=== PATIENT | female | born 1955 | race Caucasian/White ===

== ENCOUNTER 2016-08-09 12:02 | Inpatient (IN) | payer BC, OTHER ==
[2016-08-09] MEDS ORDERED: IPRATROPIUM-ALBUTEROL 3 ML NEB INHALATION STA (12:21)
--- NOTE | 2016-08-09 12:24 | ED ---
Chest Pain HPI - General Chief Complaint: Chest Pain Stated Complaint: Chest Pain/SOB Time Seen by Provider: 08/09/16 12:11 Source: patient, family, RN notes reviewed Mode of arrival: wheelchair Limitations: no limitations - History of Present Illness Initial Comments: This is a 61-year-old female with a necessity benign past medical history other than hypertension who did quit smoking about 30 years ago who states she's had for the past 2 weeks evidence of a racing heart and shortness of breath especially when climbing stairs curiously also is had a cold and cough symptoms she has had in the morning cough with greenish brown phlegm. She's had no overt fevers chills or sweats. Also of note however she states she just drove back from [place] about 2 weeks ago when the symptoms did start. She denies any overt chest pain at this time she has intermittent edema in her left ankle but this in the [place] for many years she denies any other complaints he denies any leg or calf pain abdominal pain or other symptoms. She does complain however of being short of breath even at rest at this time. MD Complaint: other - Related Data Home Medications Medication Instructions Recorded Confirmed Atorvastatin [Lipitor] 20 mg PO HS 08/09/16 08/09/16 Levothyroxine Sodium [Synthroid] 150 mcg PO DAILY 08/09/16 08/09/16 Metoprolol Tartrate [Lopressor] 50 mg PO DAILY 08/09/16 08/09/16 Allergies Allergy/AdvReac Type Severity Reaction Status Date / Time Penicillins Allergy Swelling Verified 08/09/16 12:53 Review of Systems ROS Statement: Those systems with pertinent positive or pertinent negative responses have been documented in the HPI. ROS Other: All systems not noted in ROS Statement are negative. EKG Findings - EKG Results: EKG: interpreted by PABLITO, sinus rhythm (Normal sinus rhythm rate of 76. Interval 134 QRS duration 78 QT/QTC of/459 appear to be normal EKG no acute ST- T wave elevations or depressions.) Past Medical History Past Medical History: Chest Pain / Angina, Hyperlipidemia, Thyroid Disorder History of Any Multi-Drug Resistant Organisms: None Reported Past Surgical History: Section, Cholecystectomy, Orthopedic Surgery Past Psychological History: No Psychological Hx Reported Smoking Status: Former smoker Past Alcohol Use History: None Reported Past Drug Use History: None Reported General Exam - General Exam Comments Initial Comments: This is a well-developed well-nourished awake alert oriented 3 female Limitations: no limitations General appearance: alert, in no apparent distress Head exam: Present: atraumatic, normocephalic, normal inspection Eye exam: Present: normal appearance, PERRL, EOMI. Absent: scleral icterus, conjunctival injection, periorbital swelling ENT exam: Present: normal exam, mucous membranes moist Neck exam: Present: normal inspection. Absent: tenderness, meningismus, lymphadenopathy Respiratory exam: Present: decreased breath sounds. Absent: respiratory distress, wheezes, rales, rhonchi, stridor Cardiovascular Exam: Present: regular rate, normal rhythm, normal heart sounds. Absent: systolic murmur, diastolic murmur, rubs, gallop, clicks GI/Abdominal exam: Present: soft, normal bowel sounds. Absent: distended, tenderness, guarding, rebound, rigid Extremities exam: Present: normal inspection, full ROM, normal capillary refill. Absent: tenderness, pedal edema, joint swelling, calf tenderness Back exam: Present: normal inspection Neurological exam: Present: alert, oriented X3, CN II-XII intact Psychiatric exam: Present: normal affect, normal mood Skin exam: Present: warm, dry, intact, normal color. Absent: rash Course Vital Signs 08/09/16 08/09/16 08/09/16 12:05 12:18 13:18 Temperature 98.8 F 97.4 F L Pulse Rate 78 70 81 Respiratory 20 24 Rate Blood Pressure 154/80 126/73 O2 Sat by Pulse 94 L 97 Oximetry 08/09/16 08/09/16 08/09/16 13:25 13:27 13:32 Temperature 98.1 F Pulse Rate 82 80 Respiratory 20 Rate Blood Pressure 131/77 O2 Sat by Pulse 97 Oximetry 08/09/16 08/09/16 08/09/16 14:05 14:07 14:47 Temperature 98.4 F Pulse Rate 102 H 86 84 Respiratory 24 24 Rate Blood Pressure 136/79 128/70 O2 Sat by Pulse 89 L 94 L 97 Oximetry 08/09/16 15:08 Temperature Pulse Rate 86 Respiratory Rate Blood Pressure 147/74 O2 Sat by Pulse 98 Oximetry - Reevaluation(s) Reevaluation #1: 08/09/16 15:38 Patient has no change in her status on reexamination no chest pain minimal dyspnea on resting she did go to the bathroom and did develop dyspnea however on exertion Chest Pain MDM - MDM I did review the x-rays which are nonspecific except for nodule left upper lobe I did do a CAT scan of the patient there is evidence of bilateral pulmonary emboli I did discuss this with the radiologist. I also discussed this with the patient and her . Is also elevation of the troponin. I did discuss the case with Dr. Bellamy. Patient will be admitted with consultation by cardiology and pulmonary medicine. Patient was started on high-dose heparin. Critical Care Time Critical Care Time: Yes Critical Care Time: 39 minutes of critical care time including initial history physical lab and x- ray orders repeat examination with CAT scan. Repeat examination of the patient is had with the patient and her regarding findings discussed with the admitting physician. Admission orders and documentation of the above. Disposition Clinical Impression: Pulmonary embolism, Non-ST elevation myocardial infarction (NSTEMI), Dyspnea on exertion Disposition: ADMITTED IP TO THIS HOSP Condition: Stable
--- NOTE | 2016-08-09 13:20 | XR ---
EXAMINATION TYPE: XR chest 2V DATE OF EXAM: 08/09/2016 1:12 PM HISTORY: Difficulty breathing. REFERENCE: NONE. FINDINGS: The heart is enlarged. There is a 2 cm nodular opacity projecting over the left upper chest . The lungs are otherwise clear. Pleural spaces are clear. IMPRESSION: 1. CARDIOMEGALY. 2. 2 CM PULMONARY NODULE IN THE LEFT UPPER LOBE. A CT SCAN OF THE CHEST WOULD BE SUGGESTED.
[2016-08-09 13:30] LABS: Basophils # (A) 0.1 k/uL (0-0.2); Basophils % (A) 1 %; CH 30.9; CHCM 32.8; Eosinophils # (A) 0.1 k/uL (0-0.7); Eosinophils % (A) 2 %; HCT 44.5 % (34.0-46.0); HDW 2.45; HGB 14.4 gm/dL (11.4-16.0); Luc # (Auto) 0.19; Luc % (Auto) 3; Lymphocytes # (A) 1.3 k/uL (1.0-4.8); Lymphocytes % (A) 19 %; MCH 30.5 pg (25.0-35.0); MCHC 32.3 g/dL (31.0-37.0); MCV 94.3 fL (80.0-100.0); Mean Platelet Volume 6.8; Monocytes # (A) 0.4 k/uL (0-1.0); Monocytes % (A) 6 %; Neutrophils # (A) 4.9 k/uL (1.3-7.7); Neutrophils % (A) 70 %; RBC 4.72 m/uL (3.80-5.40); RDW 12.9 % (11.5-15.5); WBC (Perox) 7.91
[2016-08-09 13:39] LABS: ALT 65 U/L (9-52); AST 48 U/L (14-36); Alkaline Phosphatase 69 U/L (38-126); Anion Gap 7 mmol/L; Blood Urea Nitrogen 16 mg/dL (7-17); Calcium 9.8 mg/dL (8.4-10.2); Carbon Dioxide 28 mmol/L (22-30); Chloride 104 mmol/L (98-107); Glucose 135 mg/dL (74-99); Magnesium 2.1 mg/dL (1.6-2.3); Non-African American GFR(MDRD) >60 (>60 ml/min/1.73 sqM); Potassium 5.2 mmol/L (3.5-5.1); Sodium 139 mmol/L (137-145); Total Bilirubin 0.7 mg/dL (0.2-1.3); Total Protein 7.1 g/dL (6.3-8.2)
[2016-08-09 13:49] LABS: Partial Thromboplastin Time 22.5 sec (22.0-30.0); Prothrombin Time 10.6 sec (9.0-12.0)
[2016-08-09 14:26] LABS: Creatine Kinase MB 1.9 ng/mL (0.0-2.4)
[2016-08-09 14:30] LABS: Troponin I 0.376 ng/mL (0.000-0.034)
[2016-08-09] MEDS ORDERED: RX INFO: IV CONTRAST WAS GIVEN 1 EACH MISC MISCELLANE PRN (14:45)
[2016-08-09] MEDS ORDERED: HEPARIN SODIUM,PORCINE 5,000 UNIT/ML 1 ML VIAL IV STA (15:31)
--- NOTE | 2016-08-09 15:38 | CT ---
EXAMINATION TYPE: CT angio chest DATE OF EXAM: 08/09/2016 3:08 PM COMPARISON: NONE HISTORY: Left sided chest pain and difficulty breathing. CT DLP: 621.00 mGycm Automated exposure control for dose reduction was used. CONTRAST: CTA scan of the thorax is performed with IV Contrast, patient injected with 100 mL of Omnipaque 300, pulmonary embolism protocol. . FINDINGS: The lungs are clear. There is no significant axillary, internal mammary, mediastinal or hilar adenopathy. There is extensive, bilateral pulmonary emboli. There is no significant evidence of right heart strai n. The heart is enlarged. There is no pleural or pericardial fluid. There is been a previous cholecystectomy. Visualized portions of the upper abdomen are otherwise norm al. There is hypertrophic spondylosis within the spine. IMPRESSION: THIS EXAMINATION IS POSITIVE FOR EXTENSIVE MAIN PULMONARY ARTERY AND LOWER LOBE PULMONARY ARTERY EMBO LI BILATERALLY.
[2016-08-09] MEDS ORDERED: NALOXONE 0.4 MG/ML 1 ML VIAL IV PRN (15:41)
[2016-08-09] MEDS: HEPARIN SODIUM,PORCINE/D5W PMX 25,000 UNIT in DEXTROSE/WATER 1 500ML.BAG IV SCH (16:03)
[2016-08-09] MEDS: SODIUM CHLORIDE 0.9% 1,000 ML IV SCH (16:03)
[2016-08-09] MEDS: IPRATROPIUM-ALBUTEROL 3 ML NEB INHALATION SCH ×4 (16:14→19:59)
[2016-08-09] MEDS ORDERED: IPRATROPIUM-ALBUTEROL 3 ML NEB INHALATION PRN (19:45)
[2016-08-09] MEDS: ATORVASTATIN 20 MG TAB PO SCH (21:21)
[2016-08-10] MEDS: HEPARIN SODIUM,PORCINE/D5W PMX 25,000 UNIT in DEXTROSE/WATER 1 500ML.BAG IV SCH ×2 (04:51→15:56)
[2016-08-10] MEDS: LEVOTHYROXINE 75 MCG TAB PO SCH (05:43)
[2016-08-10] MEDS: IPRATROPIUM-ALBUTEROL 3 ML NEB INHALATION SCH ×4 (07:30→19:16)
[2016-08-10] MEDS: METOPROLOL TARTRATE 50 MG TAB PO SCH (08:40)
--- NOTE | 2016-08-10 10:09 | P.HPIM ---
History of Present Illness H&P Date: 08/10/16 Chief Complaint: Chest pain and shortness of breath Patient is a 61 year old female who presented to ER with a chief complaint of chest pain and shortness of breath she states that she traveled from [place] to [place] in a car which was at 10-12 hour right 2 weeks ago she started having episodes of chest pain and feeling her heart racing she started having worsening shortness of breath eventually she decided to come to emergency room she was evaluated in the emergency room her d-dimer was significantly elevated at 5.22, computed tomography scan angiogram of the chest was positive for extensive bilateral pulmonary embolism she was started on IV heparin and was admitted to the telemetry floor. Pulmonary consultation was requested. Patient also had slightly elevated troponin level. Past medical and surgical history is significant for #1 history of hypertension #2 history of osteoarthritis, status post bilateral knee surgeries #3 history of cholecystectomy #4 history of hernia repair #5 history of hyperlipidemia maintained on Lipitor Social history Patient lives at home she is able to ambulate and take care of her daily needs she use to smoke she quit 30 years ago she drinks alcohol rarely she denies any drug use Past Medical History Past Medical History: Chest Pain / Angina, Hyperlipidemia, Osteoarthritis (OA), Pneumonia, Thyroid Disorder Additional Past Medical History / Comment(s): PAPITATIONS, History of Any Multi-Drug Resistant Organisms: None Reported Past Surgical History: Section, Cholecystectomy, Hernia Repair, Orthopedic Surgery, Tonsillectomy Additional Past Surgical History / Comment(s): ONE DENTAL IMPLANT, COLONOSCOPY, HEMORRHOIDECTOMY,PILONIDAL CYST REMOVED AGE 17, CERVICAL BX-PRE CANCEROUS CELLS- HAD PROCEDURE , HAD BROKEN IUD REMOVED AND PT STATED THEY WENT IN LIKE HAVING A TO REMOVED BROKEN PEICES,DOMINGUEZ KNEE REPLACEMENTS Past Anesthesia/Blood Transfusion Reactions: No Reported Reaction Past Psychological History: No Psychological Hx Reported Smoking Status: Former smoker Past Alcohol Use History: Rare Additional Past Alcohol Use History / Comment(s): STARTED SMOKING AT AGE 17, SMOKED 1PPD ,QUIT 1985 Past Drug Use History: None Reported - Past Family History Father Family Medical History: Congestive Heart Failure (CHF) Additional Family Medical History / Comment(s): AGE 78 Mother Additional Family Medical History / Comment(s): PARKINSONS- AGE 74. AN AUNT HAD BRAIN AND ABD ANUERYSM. Medications and Allergies Home Medications Medication Instructions Recorded Confirmed Type Atorvastatin [Lipitor] 20 mg PO HS 08/09/16 08/09/16 History Levothyroxine Sodium [Synthroid] 150 mcg PO DAILY 08/09/16 08/09/16 History Metoprolol Tartrate [Lopressor] 50 mg PO DAILY 08/09/16 08/09/16 History Allergies Allergy/AdvReac Type Severity Reaction Status Date / Time Penicillins Allergy Swelling Verified 08/09/16 12:53 Physical Exam Vitals: Vital Signs Temp Pulse Pulse Pulse Resp BP BP 08/10/16 08:00 98.3 F 86 18 112/82 08/10/16 07:37 85 08/10/16 07:30 85 08/10/16 04:00 81 18 118/71 08/10/16 00:00 86 18 122/70 08/09/16 20:00 98.5 F 87 92 18 123/68 08/09/16 19:20 88 08/09/16 19:10 88 08/09/16 17:10 98.2 F 87 16 140/87 08/09/16 16:10 98.1 F 88 20 134/66 Pulse Ox 08/10/16 08:00 95 08/10/16 07:37 08/10/16 07:30 08/10/16 04:00 96 08/10/16 00:00 95 08/09/16 20:00 97 08/09/16 19:20 08/09/16 19:10 08/09/16 17:10 94 L 08/09/16 16:10 97 Intake and Output 08/09/16 08/10/16 08/10/16 22:59 06:59 14:59 Intake Total 180 544.232 100 Balance 180 544.232 100 Intake: IV 60 Heparin Sodium,Porcine/ 60 D5w Pmx 25,000 unit In Dextrose/Water 1 500ml. bag @ 18 UNITS/KG/HR 42. 45 mls/hr IV .[id number] [facility] Rx#:[id number] Intake, IV Titration 544.232 40 Amount Heparin Sodium,Porcine/ 544.232 D5w Pmx 25,000 unit In Dextrose/Water 1 500ml. bag @ 18 UNITS/KG/HR 42. 45 mls/hr IV .[id number] [facility] Rx#:[id number] Sodium Chloride 0.9% 1, 40 000 ml @ 20 mls/hr IV . Q24H [facility] Rx#:[id number] Oral 180 0 Other: # Voids 0 0 0 Weight 117.934 kg Patient Weight 08/11/16 06:59 Weight 117.934 kg In general patient is alert and oriented 3 in no apparent distress HEENT head normocephalic and atraumatic Neck is supple no JVD no goiter no lymphadenopathy Chest exam reveals a scattered crackles bilaterally no wheezing Cardiac exam reveals regular heart sounds S1 and S2 no gallops no murmurs Abdomen is soft nontender no organomegaly was normal bowel sounds Extremity exam reveals minimal edema especially in the left ankle area no cyanosis or clubbing Results CBC & Chem 7: 08/09/16 13:14 08/09/16 13:14 Labs: Abnormal Lab Results - Last 24 Hours (Table) 08/09/16 08/09/16 08/10/16 Range/Units 19:15 22:12 00:50 APTT 94.8 H (22.0-30.0) sec Troponin I 0.544 H* 0.423 H* (0.000-0.034) ng/mL 08/10/16 Range/Units 05:30 APTT 62.8 H (22.0-30.0) sec Troponin I (0.000-0.034) ng/mL Assessment and Plan Plan: #1 bilateral pulmonary embolism, patient started on IV heparin, pulmonary consultation was requested #2 slight elevation in troponin level, cardiology consultation was requested likely related to pulmonary embolism #3 underlying history of hypertension #4 underlying history of hyperlipidemia #5 underlying history of hypothyroidism #6 remote history of smoking quit 30 years ago #7 underlying history of osteoarthritis At this time continue was current medications, will assess if patient insurance pays for any of the new anticoagulation medications, if not patient will be started on Coumadin.
--- NOTE | 2016-08-10 10:22 | CONS ---
DATE OF CONSULTATION: CHIEF COMPLAINT: Shortness of breath, palpitations and syncope. Natty is a 61-year-old lady with history of hypothyroidism, dyslipidemia, and palpitations who presented to the hospital having had an episode of sustained palpitations, chest tightness and syncope while she was having a bowel movement. The patient has been having on and off episodes of palpitations, but the most recent episode came on at rest with severe in intensity and without any clear-cut relieving or exacerbating factors. She came to hospital. Her EKG did not reveal ischemic changes. She has had troponin that was elevated. A D-dimer that was 5.22, went on to have a CT scan of the lungs that showed extensive pulmonary embolism involving the main pulmonary artery and lower lobe pulmonary arteries. She is treated with intravenous heparin and at the time of my evaluation this morning appears comfortable at rest. Does not seem to be in respiratory distress. She is not tachycardic and remains hemodynamically stable. Chest x-ray showed mild cardiomegaly. Past medical history is significant for hypothyroidism, dyslipidemia, hypertension and palpitations. Medications at home include Lopressor 50 mg daily, Synthroid and Lipitor. Allergic to PENICILLIN. Family history is negative for premature coronary artery disease. SOCIAL HISTORY: Negative for smoking, EtOH abuse or drug abuse. REVIEW OF SYSTEMS: HEENT: Unremarkable. CARDIAC: As described above. RESPIRATORY: As described above. GI: Negative. GENITOURINARY: Negative. ALLERGY/IMMUNOLOGY: Negative. MUSCULOSKELETAL: Negative. ENDOCRINE: Negative. HEMATOLOGICAL: Negative. DERMATOLOGY: Negative. CONSTITUTIONAL: Negative. ONCOLOGICAL: Negative. The rest of the system review is not relevant. On exam, comfortable at rest. Vital signs are stable. There is no jugular venous distention. Chest exam reveals good air entry bilaterally. Heart exam reveals first and second heart sounds. No gallop. No murmur. Abdomen is soft, nontender. Exam of extremities did not reveal edema. Peripheral pulses are felt. Labs are as described. Hemoglobin is 14.4. Creatinine is 0.9. Troponins elevated as described above. BNP is 101. ASSESSMENT: 1. Syncope secondary to large pulmonary embolism. 2. Palpitations, probably related to it. PLAN: I am going to obtain a 2-D echo to assess LV function and to assess her RV strain, and pulmonary hypertension. She is on heparin which we are going to continue and we can switch her to Xarelto. I will obtain a venous duplex study to rule out DVT.
--- NOTE | 2016-08-10 12:03 | P.CNPUL ---
History of Present Illness Consult date: 08/10/16 Requesting physician: Angel Luis Bellamy Reason for consult: pulmonary embolism Chief complaint: Chest pain and shortness of breath, and syncope History of present illness: This is a 62-year-old female with history of hypertension, degenerative joint disease and previous bilateral knee replacements years ago, history of hyperlipidemia, primarily a patient of Dr. Duncan in [place]. Patient has been traveling by car for the last 2 weeks to [place] and back to [place]. And over the last 2 weeks she has been experiencing episodes of chest tightness, and shortness of breath with palpitations. When patient came back to [place], she continued to have these symptoms especially with any exertion and more so when she was climbing any flight of stairs. Patient had an episode of syncope as she was on the toilet. Hence she was brought into the ER. Patient was noted to have elevated d-dimer, chest x-ray was unremarkable, but CT of the chest showed bilateral pulmonary emboli. Patient was started on heparin, she was hemodynamically stable, she had some troponin leak, and she did not require TPA. Patient was admitted, and this consult was initiated. No previous history of pulmonary embolism or DVT. No previous history of hypercoagulable state. No previous history of underlying malignancy. And no family history of hypercoagulability. No history of connective tissue disease. Presently patient is doing well, no cough no wheezing no shortness of breath no chest pain. Patient has no shortness of breath at rest. No headaches no blurred vision no dizziness. No nausea no vomiting no abdominal pain no melena no hematemesis. No dysuria and no frequency no urgency. Review of Systems 14 point review of systems were obtained, please refer to pertinent positives and negatives in HPI. Past Medical History Past Medical History: Chest Pain / Angina, Hyperlipidemia, Osteoarthritis (OA), Pneumonia, Thyroid Disorder Additional Past Medical History / Comment(s): PAPITATIONS, History of Any Multi-Drug Resistant Organisms: None Reported Past Surgical History: Section, Cholecystectomy, Hernia Repair, Orthopedic Surgery, Tonsillectomy Additional Past Surgical History / Comment(s): ONE DENTAL IMPLANT, COLONOSCOPY, HEMORRHOIDECTOMY,PILONIDAL CYST REMOVED AGE 17, CERVICAL BX-PRE CANCEROUS CELLS- HAD PROCEDURE , HAD BROKEN IUD REMOVED AND PT STATED THEY WENT IN LIKE HAVING A TO REMOVED BROKEN PEICES,DOMINGUEZ KNEE REPLACEMENTS Past Anesthesia/Blood Transfusion Reactions: No Reported Reaction Past Psychological History: No Psychological Hx Reported Smoking Status: Former smoker Past Alcohol Use History: Rare Additional Past Alcohol Use History / Comment(s): STARTED SMOKING AT AGE 17, SMOKED 1PPD ,QUIT 1985 Past Drug Use History: None Reported - Past Family History Father Family Medical History: Congestive Heart Failure (CHF) Additional Family Medical History / Comment(s): AGE 78 Mother Additional Family Medical History / Comment(s): PARKINSONS- AGE 74. AN AUNT HAD BRAIN AND ABD ANUERYSM. Medications and Allergies Home Medications Medication Instructions Recorded Confirmed Type Atorvastatin [Lipitor] 20 mg PO HS 08/09/16 08/09/16 History Levothyroxine Sodium [Synthroid] 150 mcg PO DAILY 08/09/16 08/09/16 History Metoprolol Tartrate [Lopressor] 50 mg PO DAILY 08/09/16 08/09/16 History Allergies Allergy/AdvReac Type Severity Reaction Status Date / Time Penicillins Allergy Swelling Verified 08/09/16 12:53 Physical Exam Vitals: Vital Signs Temp Pulse Pulse Pulse Resp BP BP 08/10/16 11:49 86 08/10/16 11:38 86 08/10/16 08:00 98.3 F 86 18 112/82 08/10/16 07:37 85 08/10/16 07:30 85 08/10/16 04:00 81 18 118/71 08/10/16 00:00 86 18 122/70 08/09/16 20:00 98.5 F 87 92 18 123/68 08/09/16 19:20 88 08/09/16 19:10 88 08/09/16 17:10 98.2 F 87 16 140/87 08/09/16 16:10 98.1 F 88 20 134/66 Pulse Ox 08/10/16 11:49 08/10/16 11:38 08/10/16 08:00 95 08/10/16 07:37 08/10/16 07:30 08/10/16 04:00 96 08/10/16 00:00 95 08/09/16 20:00 97 08/09/16 19:20 08/09/16 19:10 08/09/16 17:10 94 L 08/09/16 16:10 97 Intake and Output 08/09/16 08/10/16 08/10/16 22:59 06:59 14:59 Intake Total 180 544.232 100 Balance 180 544.232 100 Intake: IV 60 Heparin Sodium,Porcine/ 60 D5w Pmx 25,000 unit In Dextrose/Water 1 500ml. bag @ 18 UNITS/KG/HR 42. 45 mls/hr IV .[id number] [facility] Rx#:[id number] Intake, IV Titration 544.232 40 Amount Heparin Sodium,Porcine/ 544.232 D5w Pmx 25,000 unit In Dextrose/Water 1 500ml. bag @ 18 UNITS/KG/HR 42. 45 mls/hr IV .[id number] [facility] Rx#:[id number] Sodium Chloride 0.9% 1, 40 000 ml @ 20 mls/hr IV . Q24H [facility] Rx#:[id number] Oral 180 0 Other: # Voids 0 0 0 Weight 117.934 kg Patient Weight 08/11/16 06:59 Weight 117.934 kg Physical Exam HEENT:[Neck is supple.] [No neck masses.] [No thyromegaly.] [No JVD.] Chest: [Clear throughout, no crackles, no rhonchi, no wheezes.] Cardiac Exam: [Normal S1 and S2, no S3 gallop, no murmur.] Abdomen: [Soft, nontender, no megaly, no rebound, no guarding, normal bowel sounds.] Extremities: [No clubbing, slight edema noted in the left lower extremity above the left ankle and according to the patient that is chronic., no cyanosis.] Neurological Exam: [No focal neurologic deficit.] Results - Laboratory Findings CBC and BMP: 08/09/16 13:14 08/09/16 13:14 PT/INR, D-dimer PT 10.6 sec (9.0-12.0) 08/09/16 13:14 INR 1.0 (<1.1) 08/09/16 13:14 D-Dimer 5.22 mg/L FEU (<0.60) H 08/09/16 13:14 Abnormal lab findings: Abnormal Labs 08/09/16 08/09/16 08/10/16 19:15 22:12 00:50 APTT 94.8 H Troponin I 0.544 H* 0.423 H* 02/11/17 05:30 APTT 62.8 H Troponin I - Diagnostic Findings CT scan - chest: image reviewed (Multiple bilateral pulmonary emboli noted.) Assessment and Plan Plan: Impression: 1 acute bilateral pulmonary embolism, provoked by recent long car travel. And venous stasis. 2 acute troponin leak most likely secondary to the volume load of the pulmonary emboli. 3 history of multiple comorbidities including essential hypertension, hyperlipidemia, hypothyroidism, and history of degenerative joint disease. Recommendation: Patient is yet to have an echocardiogram today, and she is yet to have bilateral venous Doppler, in the meantime I fully agree with the treatment plan, however the patient demonstrates any hemodynamic instability whatsoever, I would be inclined to start the patient on TPA. At least at this point she is stable enough and does not require TPA. We'll continue to follow closely. Early next week, the patient could be started on possibly Xarelto. Length of treatment would have to be at least a 3-6 months. Time with Patient: Greater than 30
--- NOTE | 2016-08-10 13:09 | ECHOF ---
Referral Reason:PE MEASUREMENTS -------- HEIGHT: 167.6 cm WEIGHT: 117.9 kg BP: 112/82 IVSd: 1.0 cm (0.6 - 1.1) LVIDd: 4.1 cm (3.9 - 5.3) LVPWd: 1.0 cm (0.6 - 1.1) LVIDs: 2.8 cm LA Diam: 3.3 cm (2.7 - 3.8) RVIDd: 3.6 cm (< 3.3) LAESV Index (A-L): 17.42 ml/m Ao Diam: 3.0 cm (2.0 - 3.7) AV Cusp: 2.2 cm (1.5 - 2.6) EPSS: 0.5 cm MV E Soy: 0.47 m/s MV DecT: 271 ms MV A Soy: 0.75 m/s MV E/A Ratio: 0.62 RAP: 5.00 mmHg RVSP: 37.00 mmHg MV EF SLOPE: 47.02 mm/s (70 - 150) MV EXCURSION: 22.13 mm (> 18.000) FINDINGS -------- Sinus rhythm. This was a technically adequate study. The left ventricular size is normal. Left ventricular wall thickness is normal. Overall left ventricular systolic function is normal with, an EF between 60 - 65 %. The right ventricle is mildly enlarged. Normal LA size by volume 22+/-6 ml/m2. The right atrium is normal in size. The aortic valve is trileaflet and appears structurally normal. Mild mitral annular calcification present. Mild tricuspid regurgitation present. There is mild pulmonary hypertension. The right ventricular systolic pressure, as measured by Doppler, is 37.00mmHg. The pulmonic valve is normal. There is no pulmonic regurgitation present. The aortic root size is normal. There is no pericardial effusion. CONCLUSIONS -------- 1. Sinus rhythm. 2. Mild mitral annular calcification present. 3. Mild tricuspid regurgitation present. 4. There is mild pulmonary hypertension. 5. The right ventricular systolic pressure, as measured by Doppler, is 37.00mmHg. 6. The pulmonic valve is normal. 7. There is no pericardial effusion. 8. This was a technically adequate study. 9. The left ventricular size is normal. 10. Left ventricular wall thickness is normal. 11. Overall left ventricular systolic function is normal with, an EF between 60 - 65 %. 12. The right ventricle is mildly enlarged. 13. Normal LA size by volume 22+/-6 ml/m2. 14. The right atrium is normal in size. 15. The aortic valve is trileaflet and appears structurally normal. [employer]K ASSEMBLER: Minnie Cantu RDCS
[2016-08-10] MEDS: SODIUM CHLORIDE 0.9% 1,000 ML IV SCH (15:57)
[2016-08-10] MEDS: ATORVASTATIN 20 MG TAB PO SCH (21:36)
[2016-08-11] MEDS: HEPARIN SODIUM,PORCINE/D5W PMX 25,000 UNIT in DEXTROSE/WATER 1 500ML.BAG IV SCH ×3 (03:55→23:05)
[2016-08-11] MEDS: LEVOTHYROXINE 75 MCG TAB PO SCH (05:40)
[2016-08-11] MEDS: IPRATROPIUM-ALBUTEROL 3 ML NEB INHALATION SCH ×4 (09:00→20:39)
[2016-08-11] MEDS: METOPROLOL TARTRATE 50 MG TAB PO SCH (09:04)
--- NOTE | 2016-08-11 10:08 | US ---
EXAMINATION TYPE: US venous doppler duplex LE DATE OF EXAM: 08/11/2016 9:44 AM COMPARISON: CTA chest dated 08/09/2016 revealing extensive pulmonary emboli. CLINICAL HISTORY: dvt/pe. No leg symptoms SIDE PERFORMED: VESSELS IMAGED: External Iliac Vein (EIV) Common Femoral Vein Deep Femoral Vein Greater Saphenous Vein * Femoral Vein Popliteal Vein Small Saphenous Vein * Proximal Calf Veins (* superficial vessels) TECHNOLOGIST IMPRESSION: Right Leg: Appears negative for DVT Left Leg: Appears to have non occluding thrombus within left proximal popiteal vein = echogenic debr is that is not compressible, blood flow seen going around clot As described above there is echogenic debris within an enlarged proximal popliteal vein that is nonco mpressible with peripheral flow seen on Doppler imaging. The distal popliteal and proximal calf veins are compressible with no echogenic intraluminal debris. IMPRESSION: 1. Nonocclusive thrombus within the proximal left popliteal vein in a patient with known pulmonary em boli. 2. No evidence of deep venous thrombosis of the right lower extremity.
--- NOTE | 2016-08-11 12:43 | P.PN ---
Subjective Principal diagnosis: Bilateral pulmonary embolism Patient is a 61-year-old female who presented to [facility] was chest congestion and severe shortness of breath that was worsening over the last 2 weeks patient stated that she had a long drive from [place] about 2 weeks ago, subsequently she started having worsening shortness of breath, d- dimer was elevated at 5.2 on admission, computed tomography scan of the chest revealed evidence of bilateral pulmonary embolism she was started on IV heparin , left lower extremity Doppler was positive for DVT. Objective - Vital Signs Vital signs: Vital Signs Temp 98.2 F 08/11/16 08:00 Pulse 90 08/11/16 09:10 Resp 18 08/11/16 08:00 BP 105/55 08/11/16 08:00 Pulse Ox 98 08/11/16 08:00 Intake & Output 08/10/16 08/11/16 08/11/16 18:59 06:59 18:59 Intake Total 873.207 862.532 349.306 Output Total 300 Balance 873.207 862.532 49.306 Weight 117.934 kg 117 kg Intake: IV 200 280 Heparin Sodium,Porcine/ 200 280 D5w Pmx 25,000 unit In Dextrose/Water 1 500ml. bag @ 18 UNITS/KG/HR 42. 45 mls/hr IV .[id number] FRANCINE Rx#:[id number] Intake, IV Titration 473.207 582.532 109.306 Amount Heparin Sodium,Porcine/ 333.207 422.532 109.306 D5w Pmx 25,000 unit In Dextrose/Water 1 500ml. bag @ 18 UNITS/KG/HR 42. 45 mls/hr IV .[id number] FRANCINE Rx#:[id number] Sodium Chloride 0.9% 1, 140 160 000 ml @ 20 mls/hr IV . Q24H FRANCINE Rx#:[id number] Oral 200 240 Output: Urine 300 Other: # Voids 0 2 1 - Exam In general patient is alert and oriented 3 in no apparent distress HEENT head normocephalic and atraumatic Neck is supple no JVD no goiter Chest exam reveals a scattered crackles bilaterally no wheezing Cardiac exam reveals regular heart sounds S1 and S2 no gallops no murmurs Abdomen is soft nontender no organomegaly Extremity exam reveals minimal edema left more than right - Labs CBC & Chem 7: 08/09/16 13:14 08/09/16 13:14 Labs: Abnormal Lab Results - Last 24 Hours (Table) 08/11/16 Range/Units 05:40 APTT 46.9 H (22.0-30.0) sec Assessment and Plan Plan: #1 bilateral pulmonary embolism, patient started on IV heparin, pulmonary consultation was requested #2 slight elevation in troponin level, cardiology consultation was requested likely related to pulmonary embolism #3 underlying history of hypertension #4 underlying history of hyperlipidemia #5 underlying history of hypothyroidism #6 remote history of smoking quit 30 years ago #7 underlying history of osteoarthritis At this time continue was current medications, will assess if patient insurance pays for any of the new anticoagulation medications, if not patient will be started on Coumadin.
--- NOTE | 2016-08-11 12:44 | P.PN ---
Subjective Principal diagnosis: Acute bilateral pulmonary emboli This is a 62-year-old female with history of hypertension, degenerative joint disease and previous bilateral knee replacements years ago, history of hyperlipidemia, primarily a patient of Dr. Duncan in [place]. Patient has been traveling by car for the last 2 weeks to [place] and back to [place]. And over the last 2 weeks she has been experiencing episodes of chest tightness, and shortness of breath with palpitations. When patient came back to [place], she continued to have these symptoms especially with any exertion and more so when she was climbing any flight of stairs. Patient had an episode of syncope as she was on the toilet. Hence she was brought into the ER. Patient was noted to have elevated d-dimer, chest x-ray was unremarkable, but CT of the chest showed bilateral pulmonary emboli. Patient was started on heparin, she was hemodynamically stable, she had some troponin leak, and she did not require TPA. Patient was admitted, and this consult was initiated. No previous history of pulmonary embolism or DVT. No previous history of hypercoagulable state. No previous history of underlying malignancy. And no family history of hypercoagulability. No history of connective tissue disease. Presently patient is doing well, no cough no wheezing no shortness of breath no chest pain. Patient has no shortness of breath at rest. No headaches no blurred vision no dizziness. No nausea no vomiting no abdominal pain no melena no hematemesis. No dysuria and no frequency no urgency. Patient was reevaluated today on 08/11/2016, doing quite well overall. No cough no wheezing no shortness of breath, she feels a bit congested. No shortness of breath and no chest pain. Her PTT is therapeutic, patient remains on heparin. Patient is being considered for possible discharge in the next 24-48 hours on Xarelto if approved by her insurance. Length of treatment will be anywhere between 3-6 months. Objective - Vital Signs Vital signs: Vital Signs Temp 98.2 F 08/11/16 08:00 Pulse 90 08/11/16 09:10 Resp 18 08/11/16 08:00 BP 105/55 08/11/16 08:00 Pulse Ox 98 08/11/16 08:00 Intake & Output 08/10/16 08/11/16 08/11/16 18:59 06:59 18:59 Intake Total 873.207 862.532 349.306 Output Total 300 Balance 873.207 862.532 49.306 Weight 117.934 kg 117 kg Intake: IV 200 280 Heparin Sodium,Porcine/ 200 280 D5w Pmx 25,000 unit In Dextrose/Water 1 500ml. bag @ 18 UNITS/KG/HR 42. 45 mls/hr IV .[id number] FRANCINE Rx#:[id number] Intake, IV Titration 473.207 582.532 109.306 Amount Heparin Sodium,Porcine/ 333.207 422.532 109.306 D5w Pmx 25,000 unit In Dextrose/Water 1 500ml. bag @ 18 UNITS/KG/HR 42. 45 mls/hr IV .[id number] FRANCINE Rx#:[id number] Sodium Chloride 0.9% 1, 140 160 000 ml @ 20 mls/hr IV . Q24H FRANCINE Rx#:[id number] Oral 200 240 Output: Urine 300 Other: # Voids 0 2 1 - Exam HEENT:[Neck is supple.] [No neck masses.] [No thyromegaly.] [No JVD.] Chest: [Clear throughout, no crackles, no rhonchi, no wheezes.] Cardiac Exam: [Normal S1 and S2, no S3 gallop, no murmur.] Abdomen: [Soft, nontender, no megaly, no rebound, no guarding, normal bowel sounds.] Extremities: [No clubbing, slight edema noted in the left lower extremity above the left ankle and according to the patient that is chronic., no cyanosis.] Neurological Exam: [No focal neurologic deficit.] - Labs CBC & Chem 7: 08/09/16 13:14 08/09/16 13:14 Labs: Abnormal Lab Results - Last 24 Hours (Table) 08/11/16 Range/Units 05:40 APTT 46.9 H (22.0-30.0) sec Assessment and Plan Plan: Impression: 1 acute bilateral pulmonary embolism, provoked by recent long car travel. And venous stasis. 2 acute deep vein thromboses involving the left lower extremity as noted on the venous Doppler 3 acute troponin leak most likely secondary to the volume load of the pulmonary emboli. 4 mild pulmonary hypertension as noted on the echocardiogram, no significant strain is appreciated. On the echocardiogram. 3 history of multiple comorbidities including essential hypertension, hyperlipidemia, hypothyroidism, and history of degenerative joint disease. Recommendation: Continue heparin, continue the rest of the medications as listed , consider starting the patient in the next 24 hours on Xarelto and plan to discharge the patient home on Xarelto for at least the next 6 months. I will see the patient on follow-up in the next few weeks. Time with Patient: Less than 30
--- NOTE | 2016-08-11 12:47 | PN ---
Natty is an 61-year-old lady who was admitted to hospital with bilateral pulmonary embolism, feeling much better on IV heparin, had a venous duplex study that revealed left leg, left popliteal vein DVT. Patient has history of recent travel. Echocardiogram showed normal LV function. On exam, comfortable at rest. Vital signs are stable. There is no jugular venous distention. Chest exam reveals good air entry bilaterally. Heart exam reveals first and second heart sounds. No gallop. Exam of extremities did not reveal edema. Peripheral pulses are felt. Occasional rhonchi are heard bilaterally. ASSESSMENT: 1. Acute large bilateral pulmonary embolism. 2. Left popliteal vein deep venous thrombosis related to recent travel. PLAN: Will switch her to Xarelto once we know that she is covered for it. If not, will start her on Coumadin tomorrow.
[2016-08-11] MEDS: SODIUM CHLORIDE 0.9% 1,000 ML IV SCH (16:14)
[2016-08-11] MEDS: ATORVASTATIN 20 MG TAB PO SCH (20:58)
[2016-08-12] MEDS: LEVOTHYROXINE 75 MCG TAB PO SCH (06:00)
[2016-08-12] MEDS: IPRATROPIUM-ALBUTEROL 3 ML NEB INHALATION SCH ×4 (07:50→20:04)
[2016-08-12] MEDS: METOPROLOL TARTRATE 50 MG TAB PO SCH (08:20)
[2016-08-12] MEDS: RIVAROXABAN 15 MG TAB PO SCH ×2 (10:22→16:37)
--- NOTE | 2016-08-12 13:00 | P.PN ---
Subjective Patient was complaining of shortness of breath this morning. She said that her dyspnea started when she was laying in bed. Her oxygen saturation was around 92 % on room air. She requested to wear her oxygen and subsequently felt better Objective - Vital Signs Vital signs: Vital Signs Temp 96.6 F L 08/12/16 11:48 Pulse 76 08/12/16 11:48 Resp 16 08/12/16 11:48 BP 116/88 08/12/16 11:48 Pulse Ox 98 08/12/16 11:48 Intake & Output 08/11/16 08/12/16 08/12/16 18:59 06:59 18:59 Intake Total 1663.698 957.406 1354 Output Total 600 200 Balance 1063.698 805.464 7365 Weight 117 kg 123 kg Intake: IV 160 420 126 Heparin Sodium,Porcine/ 160 420 126 D5w Pmx 25,000 unit In Dextrose/Water 1 500ml. bag @ 18 UNITS/KG/HR 42. 45 mls/hr IV .[id number] FRANCINE Rx#:[id number] Intake, IV Titration 533.698 462.119 60 Amount Heparin Sodium,Porcine/ 433.698 242.119 D5w Pmx 25,000 unit In Dextrose/Water 1 500ml. bag @ 18 UNITS/KG/HR 42. 45 mls/hr IV .[id number] FRANCINE Rx#:[id number] Sodium Chloride 0.9% 1, 100 220 60 000 ml @ 20 mls/hr IV . Q24H FRANCINE Rx#:[id number] Oral 970 0 1060 Output: Urine 600 200 Other: # Voids 3 1 - Exam General: The patient is awake and alert, in no distress Eye: there is normal conjunctiva bilaterally. Neck: The neck is supple, there is no JVD. Cardiovascular: Normal S1-S2, no S3-S4, no murmurs. Respiratory: Lungs clear to auscultation bilaterally Gastrointestinal: Abdomen is soft, nontender Musculoskeletal: There is no pedal edema. Neurological:. Speech is normal. Skin: Skin is warm and dry - Labs CBC & Chem 7: 08/09/16 13:14 08/09/16 13:14 Labs: Abnormal Lab Results - Last 24 Hours (Table) 08/12/16 Range/Units 06:19 APTT 58.7 H (22.0-30.0) sec Assessment and Plan Plan: #1 bilateral pulmonary embolism, patient started on Rivaroxaban #2 slight elevation in troponin level, most likely non-thrombotic troponin leak cardiology consultation was requested #3 essential hypertension #4 underlying history of hyperlipidemia #5 underlying history of hypothyroidism #6 remote history of smoking quit 30 years ago #7 underlying history of osteoarthritis Plan for today: Patient was reassured. Wean off oxygen and check O2 sat ration at rest and with ambulation on room air. Plan to discharge home tomorrow. Start Robitussin as needed for cough.
--- NOTE | 2016-08-12 13:19 | P.PN ---
Subjective Progress note dated 08/12/2016 This a 61-year-old female sustained a bilateral pulmonary emboli. She had a recent long car ride from [place]. She did stop periodically long away but did develop bilateral pulmonary emboli. Clot burden seemed pretty significant. She's feeling well though. She did have a clot in the back of her left leg behind the knee. We talked about length of treatment. The patient is doing well. Probably only be treated about 3 months. You could argue for 6 months only because of the amount of clot burden. I think a repeat computed tomography scan will help with quite a bit. We'll plan to do 110 weeks after the first one. At which time, we'll decide whether or not she needs longer course of treatment. Again she's feeling well. No complaints at this time. Objective - Vital Signs Vital signs: Vital Signs Temp 96.6 F L 08/12/16 11:48 Pulse 76 08/12/16 11:48 Resp 16 08/12/16 11:48 BP 116/88 08/12/16 11:48 Pulse Ox 98 08/12/16 11:48 Intake & Output 08/11/16 08/12/16 08/12/16 18:59 06:59 18:59 Intake Total 1663.698 850.147 5175 Output Total 600 200 Balance 1063.698 607.845 0170 Weight 117 kg 123 kg Intake: IV 160 420 126 Heparin Sodium,Porcine/ 160 420 126 D5w Pmx 25,000 unit In Dextrose/Water 1 500ml. bag @ 18 UNITS/KG/HR 42. 45 mls/hr IV .[id number] FRANCINE Rx#:[id number] Intake, IV Titration 533.698 462.119 60 Amount Heparin Sodium,Porcine/ 433.698 242.119 D5w Pmx 25,000 unit In Dextrose/Water 1 500ml. bag @ 18 UNITS/KG/HR 42. 45 mls/hr IV .[id number] FRANCINE Rx#:[id number] Sodium Chloride 0.9% 1, 100 220 60 000 ml @ 20 mls/hr IV . Q24H FRANCINE Rx#:[id number] Oral 970 0 1060 Output: Urine 600 200 Other: # Voids 3 1 - Exam No acute distress, oriented 3. HEENT examination is grossly unremarkable. Mucous membranes are moist. Supple. Full range of motion. No adenopathy or thyromegaly. Cardio vascular examination was regular rhythm rate. S1-S2 normal. No murmur. Lungs reveal relatively clear breath sounds. No wheezes or rhonchi. No crackles. Abdomen soft bowel sounds are heard. Extremities are intact. - Labs CBC & Chem 7: 08/09/16 13:14 08/09/16 13:14 Labs: Abnormal Lab Results - Last 24 Hours (Table) 08/12/16 Range/Units 06:19 APTT 58.7 H (22.0-30.0) sec Assessment and Plan (1) DVT (deep venous thrombosis) Status: Acute (2) Dyspnea on exertion Status: Acute (3) Pulmonary embolism Status: Acute Plan: Plan dated 08/12/2016 The patient's just finishing off her IV heparin. This was started on Zarrella toe. She should be treated for at least 3 months. He may argue for a longer period to treatment. This will depend on the follow-up computed tomography scan and also I'll see whether or not she had a N-terminal proBNP done and whether or not she had troponins done. In addition, did she have a cardiac echo done. This may lead some credence to a longer period of treatment if she in fact had evidence of right ventricular strain. The patient should follow up with us in the office in about 3 weeks. Follow-up computed tomography scan in about 10 weeks after the initial computed tomography scan. We'll discuss treatment with the patient at that time. Additional recommendations suggestions are forthcoming. Follow-up with deftly necessary. Time with Patient: Less than 30
--- NOTE | 2016-08-12 13:37 | P.PN ---
Subjective Principal diagnosis: BiLateral pulmonary embolism This is a 61-year-old female with history of hypertension, hyperlipidemia, degenerative joint disease, who had been traveling by car for the last 2 weeks to [place] and back to [place]. Over the past 2 weeks , she states that she had been experiencing episodes of chest discomfort and shortness of breath with occasional palpitations. She presented to the hospital following an episode of syncope. She was noted to have an elevated d- dimer, chest x-ray was unremarkable, but the CAT scan of the chest did reveal bilateral pulmonary embolisms. She was initiated on IV heparin. Echocardiogram with Doppler study was performed which revealed an ejection fraction of 60-65%. Blood pressure 116/88 with a heart rate in the 60s. Patient was seen and examined this morning, she states earlier in the morning she had an episode where she felt short of breath, oxygen supply. Stable at the time of my examination. Also states she had one episode of palpitations, bus monitor at that time showed a normal sinus rhythm. Objective - Vital Signs Vital signs: Vital Signs Temp 96.6 F L 08/12/16 11:48 Pulse 76 08/12/16 11:48 Resp 16 08/12/16 11:48 BP 116/88 08/12/16 11:48 Pulse Ox 98 08/12/16 11:48 Intake & Output 08/11/16 08/12/16 08/12/16 18:59 06:59 18:59 Intake Total 1663.698 435.091 9696 Output Total 600 200 Balance 1063.698 888.101 9750 Weight 117 kg 123 kg Intake: IV 160 420 126 Heparin Sodium,Porcine/ 160 420 126 D5w Pmx 25,000 unit In Dextrose/Water 1 500ml. bag @ 18 UNITS/KG/HR 42. 45 mls/hr IV .[id number] FRANCINE Rx#:[id number] Intake, IV Titration 533.698 462.119 60 Amount Heparin Sodium,Porcine/ 433.698 242.119 D5w Pmx 25,000 unit In Dextrose/Water 1 500ml. bag @ 18 UNITS/KG/HR 42. 45 mls/hr IV .[id number] FRANCINE Rx#:[id number] Sodium Chloride 0.9% 1, 100 220 60 000 ml @ 20 mls/hr IV . Q24H FRANCINE Rx#:[id number] Oral 970 0 1060 Output: Urine 600 200 Other: # Voids 3 1 - Exam PHYSICAL EXAMINATION: HEENT: [Head is atraumatic, normocephalic. Pupils equal, round. Neck is supple. There is no elevated jugular venous pressure.] HEART EXAMINATION: [Heart S1, S2 normal. No murmur or gallop heard.] CHEST EXAMINATION:[ Lungs are clear to auscultation and precussion. No chest wall tenderness is noted on palpation or with deep breathing.] ABDOMEN: [ Soft, nontender. Bowel sounds are heard. No organomegaly noted]. EXTREMITIES:[ 2+ peripheral pulses with no evidence of peripheral edema and no calf tenderness noted]. NEUROLOGIC [patient is awake, alert and oriented -3.] . - Labs CBC & Chem 7: 08/09/16 13:14 08/09/16 13:14 Labs: Abnormal Lab Results - Last 24 Hours (Table) 08/12/16 Range/Units 06:19 APTT 58.7 H (22.0-30.0) sec Assessment and Plan (1) Bilateral pulmonary embolism Status: Acute (2) HTN (hypertension) Status: Acute (3) Hyperlipemia Status: Acute (4) DVT (deep venous thrombosis) Status: Acute Plan: Cardiology's perspective, we'll discontinue the IV heparin and start the patient on xarelto 15 mg one tablet by mouth twice a day for 21 days, then 20 mg daily. Continue to monitor for another 24-48 hours. DNP note has been reviewed, I agree with a documented findings and plan of care. Patient was seen and examined.
[2016-08-12] MEDS: SODIUM CHLORIDE 0.9% 1,000 ML IV SCH (16:29)
[2016-08-12] MEDS: guaiFENesin SYRUP 100MG/5ML 200 MG/10 ML CUP PO PRN ×2 (16:37→22:32)
[2016-08-12] MEDS: ATORVASTATIN 20 MG TAB PO SCH (20:04)
[2016-08-13 04:41] VITALS: RESP 18
[2016-08-13] MEDS: LEVOTHYROXINE 75 MCG TAB PO SCH (06:26)
[2016-08-13] MEDS: RIVAROXABAN 15 MG TAB PO SCH (06:26)
[2016-08-13] MEDS: guaiFENesin SYRUP 100MG/5ML 200 MG/10 ML CUP PO PRN (06:27)
[2016-08-13 06:47] LABS: Basophils # (A) 0.1 k/uL (0-0.2); Basophils % (A) 1 %; CH 31.1; CHCM 32.8; Eosinophils # (A) 0.3 k/uL (0-0.7); Eosinophils % (A) 5 %; HCT 41.3 % (34.0-46.0); HDW 2.34; Luc # (Auto) 0.12; Luc % (Auto) 2; Lymphocytes # (A) 1.5 k/uL (1.0-4.8); Lymphocytes % (A) 28 %; MCHC 31.4 g/dL (31.0-37.0); MCV 95.4 fL (80.0-100.0); Mean Platelet Volume 8.4; Monocytes # (A) 0.4 k/uL (0-1.0); Monocytes % (A) 7 %; Neutrophils % (A) 56 %; RBC 4.33 m/uL (3.80-5.40); WBC 5.3 k/uL (3.8-10.6); WBC (Perox) 5.54
[2016-08-13 06:57] LABS: Anion Gap 9 mmol/L; Blood Urea Nitrogen 13 mg/dL (7-17); Calcium 9.4 mg/dL (8.4-10.2); Carbon Dioxide 27 mmol/L (22-30); Chloride 108 mmol/L (98-107); Glucose 91 mg/dL (74-99); Non-African American GFR(MDRD) 59 (>60 ml/min/1.73 sqM); Potassium 4.7 mmol/L (3.5-5.1); Sodium 144 mmol/L (137-145)
[2016-08-13] MEDS: IPRATROPIUM-ALBUTEROL 3 ML NEB INHALATION SCH ×2 (07:25→13:30)
[2016-08-13] MEDS: METOPROLOL TARTRATE 50 MG TAB PO SCH (08:40)
[2016-08-13 12:10] VITALS: BP 121/67; PULSE 59; TEMP 97.1
--- NOTE | 2016-08-13 12:31 | P.PN ---
Subjective Principal diagnosis: BiLateral pulmonary embolism This is a 61-year-old female with history of hypertension, hyperlipidemia, degenerative joint disease, who had been traveling by car for the last 2 weeks to [place] and back to [place]. Over the past 2 weeks , she states that she had been experiencing episodes of chest discomfort and shortness of breath with occasional palpitations. She presented to the hospital following an episode of syncope. She was noted to have an elevated d- dimer, chest x-ray was unremarkable, but the CAT scan of the chest did reveal bilateral pulmonary embolisms. Echocardiogram with Doppler study was performed which revealed an ejection fraction of 60-65%. Currently on Xarelto for PE protocol. Objective - Vital Signs Vital signs: Vital Signs Temp 97.1 F L 08/13/16 12:05 Pulse 59 L 08/13/16 12:05 Resp 18 08/13/16 12:05 BP 121/67 08/13/16 12:05 Pulse Ox 95 08/13/16 12:05 Intake & Output 08/12/16 08/13/16 08/13/16 18:59 06:59 18:59 Intake Total 2446 20 240 Balance 2446 20 240 Weight 122.8 kg Intake: IV 126 20 10 mL sodium chloride 20 FLUSH Heparin Sodium,Porcine/ 126 D5w Pmx 25,000 unit In Dextrose/Water 1 500ml. bag @ 18 UNITS/KG/HR 42. 45 mls/hr IV .[id number] FRANCINE Rx#:[id number] Intake, IV Titration 60 Amount Sodium Chloride 0.9% 1, 60 000 ml @ 20 mls/hr IV . Q24H FRANCINE Rx#:[id number] Oral 2260 240 Other: Voiding Method Toilet Toilet - Exam PHYSICAL EXAMINATION: HEENT: [Head is atraumatic, normocephalic. Pupils equal, round. Neck is supple. There is no elevated jugular venous pressure.] HEART EXAMINATION: [Heart S1, S2 normal. No murmur or gallop heard.] CHEST EXAMINATION:[ Lungs are clear to auscultation and precussion. No chest wall tenderness is noted on palpation or with deep breathing.] ABDOMEN: [ Soft, nontender. Bowel sounds are heard. No organomegaly noted]. EXTREMITIES:[ 2+ peripheral pulses with no evidence of peripheral edema and no calf tenderness noted]. NEUROLOGIC [patient is awake, alert and oriented -3.] . - Labs CBC & Chem 7: 08/13/16 06:25 08/13/16 06:25 Labs: Abnormal Lab Results - Last 24 Hours (Table) 08/13/16 Range/Units 06:25 Chloride 108 H (98-107) mmol/L Assessment and Plan (1) Bilateral pulmonary embolism Status: Acute (2) HTN (hypertension) Status: Acute (3) Hyperlipemia Status: Acute (4) DVT (deep venous thrombosis) Status: Acute Plan: Cardiology's perspective, the patient may be able to be discharged home once cleared by the primary. We will continue xarelto 15 mg one tablet by mouth twice a day for a duration of 21 days, then start the patient on xarelto 20 mg daily. A follow-up appointment will be made with Dr. Muñoz in the office post discharge. DNP note has been reviewed, I agree with a documented findings and plan of care. Patient was seen and examined.
--- NOTE | 2016-08-13 12:54 | P.DS ---
Providers Date of admission: 08/09/16 15:44 Attending physician: Angel Luis Bellamy Primary care physician: Mariaa Duncan [facility] Hospital Course: This is a 61-year-old female with past medical history noted below who presented to the hospital initially with chest discomfort and shortness of breath. Patient was evaluated in the emergency room and was noted to have an elevated d-dimer. CT angiogram revealed bilateral pulmonary embolus. Patient was started on IV heparin and was admitted to telemetry floor. She was seen and evaluated by cardiology and pulmonology. Echocardiogram showed preserved ejection fraction with no significant valvular abnormality and the right ventricle was noted to be mildly enlarged. Patient's anticoagulation was switched to Rivaroxaban and was checked by social work to be covered by insurance. She will continue Rivaroxaban 15 mg twice daily for 20 days at home then switched to 20 mg at bedtime thereafter. She needs to be on anticoagulation for at least 6 months. Below is a list of her medical problems addressed during this hospitalization. #1 bilateral pulmonary embolism, patient started on Rivaroxaban #2 slight elevation in troponin level, most likely non-thrombotic troponin leak cardiology consultation was requested #3 essential hypertension #4 underlying history of hyperlipidemia #5 underlying history of hypothyroidism #6 remote history of smoking quit 30 years ago #7 underlying history of osteoarthritis Patient Condition at Discharge: Stable Plan - Discharge Summary New Discharge Prescriptions: Metoprolol Tartrate 25 mg PO BID #60 tab Rivaroxaban [Xarelto] 15 mg PO BID #40 tab Rivaroxaban [Xarelto] 20 mg PO HS #30 tab Discharge Medication List Atorvastatin [Lipitor] 20 mg PO HS 08/09/16 [History] Levothyroxine Sodium [Synthroid] 150 mcg PO DAILY 08/09/16 [History] Metoprolol Tartrate 25 mg PO BID #60 tab 08/13/16 [Rx] Rivaroxaban [Xarelto] 15 mg PO BID #40 tab 08/13/16 [Rx] Rivaroxaban [Xarelto] 20 mg PO HS #30 tab 08/13/16 [Rx] Follow up Appointment(s)/Referral(s): Mariaa Duncan MD [Primary Care Provider] - 1-2 days Kj Muñoz MD [STAFF PHYSICIAN] - 2 Weeks Discharge Disposition: HOME SELF-CARE
[2016-08-13] MEDS: SODIUM CHLORIDE 0.9% 1,000 ML IV SCH (14:55)
--- NOTE | 2016-08-13 15:35 | P.PN ---
Subjective Progress note dated 08/12/2016 This a 61-year-old female sustained a bilateral pulmonary emboli. She had a recent long car ride from [place]. She did stop periodically long away but did develop bilateral pulmonary emboli. Clot burden seemed pretty significant. She's feeling well though. She did have a clot in the back of her left leg behind the knee. We talked about length of treatment. The patient is doing well. Probably only be treated about 3 months. You could argue for 6 months only because of the amount of clot burden. I think a repeat computed tomography scan will help with quite a bit. We'll plan to do 110 weeks after the first one. At which time, we'll decide whether or not she needs longer course of treatment. Again she's feeling well. No complaints at this time. Progress note dated 08/13/2016 This pleasant 61-year-old female with a diagnosis of DVT and pulmonary embolism is being discharged home. Her risk factor was a long car ride from [place].. She is doing better. Although on her computed tomography scan, her clot burden seems significant, he really had no major findings which would suggest a submassive PE. Her N-terminal proBNP was nearly normal. Her and her d-dimer was elevated. Her BNP was normal or just slightly elevated. There is no evidence of significant right heart strain flattening of the septum leftward movement of the septum or acute tricuspid regurgitation on echocardiogram and a computed tomography scan did not show any evidence of right ventricular strain. Objective - Vital Signs Vital signs: Vital Signs Temp 97.1 F L 08/13/16 12:05 Pulse 59 L 08/13/16 12:05 Resp 18 08/13/16 12:05 BP 121/67 08/13/16 12:05 Pulse Ox 95 08/13/16 12:05 Intake & Output 08/12/16 08/13/16 08/13/16 18:59 06:59 18:59 Intake Total 2446 20 480 Balance 2446 20 480 Weight 122.8 kg Intake: IV 126 20 10 mL sodium chloride 20 FLUSH Heparin Sodium,Porcine/ 126 D5w Pmx 25,000 unit In Dextrose/Water 1 500ml. bag @ 18 UNITS/KG/HR 42. 45 mls/hr IV .[id number] [facility] Rx#:[id number] Intake, IV Titration 60 Amount Sodium Chloride 0.9% 1, 60 000 ml @ 20 mls/hr IV . Q24H [facility] Rx#:[id number] Oral [id number] Other: Voiding Method Toilet Toilet - Exam No acute distress, oriented 3. HEENT examination is grossly unremarkable. Mucous membranes are moist. Supple. Full range of motion. No adenopathy or thyromegaly. Cardio vascular examination was regular rhythm rate. S1-S2 normal. No murmur. Lungs reveal relatively clear breath sounds. No wheezes or rhonchi. No crackles. Abdomen soft bowel sounds are heard. Extremities are intact. - Labs CBC & Chem 7: 08/13/16 06:25 08/13/16 06:25 Labs: Abnormal Lab Results - Last 24 Hours (Table) 08/13/16 Range/Units 06:25 Chloride 108 H (98-107) mmol/L Assessment and Plan (1) DVT (deep venous thrombosis) Status: Acute (2) Dyspnea on exertion Status: Acute (3) Pulmonary embolism Status: Acute Plan: Plan dated 08/12/2016 The patient's just finishing off her IV heparin. This was started on Zarrella toe. She should be treated for at least 3 months. He may argue for a longer period to treatment. This will depend on the follow-up computed tomography scan and also I'll see whether or not she had a N-terminal proBNP done and whether or not she had troponins done. In addition, did she have a cardiac echo done. This may lead some credence to a longer period of treatment if she in fact had evidence of right ventricular strain. The patient should follow up with us in the office in about 3 weeks. Follow-up computed tomography scan in about 10 weeks after the initial computed tomography scan. We'll discuss treatment with the patient at that time. Additional recommendations suggestions are forthcoming. Follow-up with deftly necessary. Plan dated 08/13/2016 The patient is doing well. Will likely be discharged home today. She'll follow me in the office. I told her that we repeat a CT angiogram in about 8- 10 weeks or so. I gave her one of my cards. Additional recommendations suggestions are forthcoming. Depending on her response to therapy and what her CAT scan was show, we'll decide on length of treatment. Technically, because she has a provoking factor, a long car ride from [place], she should only be treated for 3 months. Speaking against that was affected she has significant clot burden on CT angiogram although she had no evidence of right heart strain and nothing to suggest submassive PE. Time with Patient: Less than 30
== END 2016-08-13 15:20 | disposition home or self-care (01) | DRG 176 ==
LOC: EC 12:02 → 6SEL 15:44
PROVIDERS: ADMIT Internal Medicine; ATTEND Internal Medicine
DX: I26.99 Other pulmonary embolism without acute cor pulmonale (principal); I82.432 Acute embolism and thrombosis of left popliteal vein; I27.2 Other secondary pulmonary hypertension; I10 Essential (primary) hypertension; E03.9 Hypothyroidism, unspecified; E78.5 Hyperlipidemia, unspecified; I87.8 Other specified disorders of veins; M19.90 Unspecified osteoarthritis, unspecified site; Z87.891 Personal history of nicotine dependence; Z96.653 Presence of artificial knee joint, bilateral; Z88.0 Allergy status to penicillin; Z79.899 Other long term (current) drug therapy; Z82.49 Family history of ischemic heart disease and other diseases of the circulatory system
CPT/HCPCS: 36415; 71020; 71275; 80048; 80053; 82550; 82553; 83735; 83880; 84484; 85025; 85379; 85610; 85730; 93005; 93306; 93970; 94640; 96376; 99291

== ENCOUNTER → 2016-10-17 | Outpatient (CLI) | payer OTHER ==
--- NOTE | 2016-10-17 11:13 | CT ---
EXAMINATION TYPE: CT angio chest DATE OF EXAM: 10/17/2016 10:55 AM COMPARISON: 08/09/2016 HISTORY: 61-year-old female, follow-up PE 08/09/16 TECHNIQUE: Contiguous axial scanning of the rest performed with IV Contrast, patient injected with 10 0 mL of Omnipaque 350. Coronal/sagittal MIP reconstructions performed. CT DLP: 663.0 mGycm Automated exposure control for dose reduction was used. FINDINGS: The heart is borderline enlarged without pericardial effusion. No reflux of contrast into the IVC or flattening of the interventricular septum. Minimal coronary vessel calcifications are present. Aorta is normal caliber with conventional arch vessel branching anatomy. No thoracic lymphadenopathy by CT size criteria. Satisfactory opacification of the pulmonary arterial system. There is borderline to mildly enlarged c aliber to the main right and left pulmonary arteries at 2.6 cm each.. There has been interval clearance of the extensive distal main pulmonary emboli. Some nonocclusive mu ral based embolic material is seen within a right lobar pulmonary arterial branch, axial image 56. Ad ditional branch point embolic material within the descending left pulmonary artery extending down int o a proximal segmental lower lobe branch where a web is noted, axial image 56 through 68. No other re sidual embolic material is seen. Evaluation of the lung shows no consolidation or pleural effusion. There is a small hiatal hernia. Visualized upper abdomen shows cholecystectomy clips. Adrenal glands are clear. Bones: Endplate spondylosis mid to lower thoracic spine. IMPRESSION: 1. CLEARANCE OF THE MAJORITY OF THE PREVIOUSLY SEEN PULMONARY EMBOLI. SMALL AMOUNT OF RESIDUAL CHRONI C NONOCCLUSIVE THROMBUS IS PRESENT IN A RIGHT LOBAR BRANCH AND ADDITIONAL RESIDUAL EMBOLIC MATERIAL A ND SOME CHRONIC WEB FORMATION IS PRESENT IN THE LEFT DESCENDING PULMONARY ARTERY EXTENDING TO A PROXI MAL SEGMENTAL LEFT LOWER LOBE BRANCH. 2. CORRELATE FOR UNDERLYING PULMONARY ARTERIAL HYPERTENSION. 3. SMALL HIATAL HERNIA.
== END | disposition home or self-care (01) ==
LOC: RADCTMAIN 10:24
PROVIDERS: ATTEND Internal Medicine Critical Care Medicine
DX: I26.99 Other pulmonary embolism without acute cor pulmonale (principal); K44.9 Diaphragmatic hernia without obstruction or gangrene
CPT/HCPCS: 71275; Q9967

== ENCOUNTER 2016-11-04 19:47 | Emergency (ER) | payer OTHER ==
[2016-11-04] MEDS ORDERED: IPRATROPIUM-ALBUTEROL 3 ML NEB INHALATION STA (20:43)
[2016-11-04] MEDS ORDERED: ACETAMINOPHEN TAB 500 MG TAB PO STA (20:54)
[2016-11-04] MEDS ORDERED: SODIUM CHLORIDE 0.9% 500 ML IV STA (20:56)
--- NOTE | 2016-11-04 20:56 | ED ---
Fever HPI - General Chief Complaint: Fever Stated Complaint: Fever/102.2 Time Seen by Provider: 11/04/16 20:35 Source: patient, RN notes reviewed, old records reviewed Mode of arrival: wheelchair Limitations: no limitations - History of Present Illness Initial Comments: This is a 61-year-old female with a recent hospitalization in July for pulmonary emboli who states she had the onset fevers chills sweats some shortness of breath that was refractory to her home updrafts and she started coughing up a little bit of blood today. She currently is on Xarelto for her pulmonary and wasn't. She denies any chest pain she also has had rhinorrhea chest congestion and sinus congestion. She also states her ears feel a bit fall. MD Complaint: fever, other - Related Data Home Medications Medication Instructions Recorded Confirmed Atorvastatin [Lipitor] 20 mg PO HS 08/09/16 11/04/16 Levothyroxine Sodium [Synthroid] 150 mcg PO DAILY 08/09/16 11/04/16 D-Methorphan/PE/Acetaminophen 2 cap PO DAILY PRN 11/04/16 11/04/16 [Vicks Dayquil Liquicaps] Rivaroxaban [Xarelto] 20 mg PO DAILY 11/04/16 11/04/16 Previous Rx's Medication Instructions Recorded Metoprolol Tartrate 25 mg PO BID #60 tab 08/13/16 Ipratropium-Albuterol Nebulize 3 ml INHALATION Q6HR PRN #120 neb 11/04/16 [Duoneb 0.5 mg-3 mg/3 ml Soln] Ipratropium/Albuterol Sulfate 2 puff INHALATION QID #1 inhaler 11/04/16 [Combivent Respimat Inhaler] Levofloxacin [Levaquin] 500 mg PO DAILY #9 tab 11/04/16 predniSONE 20 mg PO BID #10 tab 11/04/16 Allergies Allergy/AdvReac Type Severity Reaction Status Date / Time Penicillins Allergy Swelling Verified 11/04/16 20:36 Review of Systems ROS Statement: Those systems with pertinent positive or pertinent negative responses have been documented in the HPI. ROS Other: All systems not noted in ROS Statement are negative. Past Medical History Past Medical History: Chest Pain / Angina, Hyperlipidemia, Osteoarthritis (OA), Pneumonia, Thyroid Disorder Additional Past Medical History / Comment(s): PAPITATIONS, PE History of Any Multi-Drug Resistant Organisms: None Reported Past Surgical History: Section, Cholecystectomy, Hernia Repair, Orthopedic Surgery, Tonsillectomy Additional Past Surgical History / Comment(s): ONE DENTAL IMPLANT, COLONOSCOPY, HEMORRHOIDECTOMY,PILONIDAL CYST REMOVED AGE 17, CERVICAL BX-PRE CANCEROUS CELLS- HAD PROCEDURE , HAD BROKEN IUD REMOVED AND PT STATED THEY WENT IN LIKE HAVING A TO REMOVED BROKEN PEICES,DOMINGUEZ KNEE REPLACEMENTS Past Anesthesia/Blood Transfusion Reactions: No Reported Reaction Past Psychological History: No Psychological Hx Reported Smoking Status: Former smoker Past Alcohol Use History: Occasional Additional Past Alcohol Use History / Comment(s): STARTED SMOKING AT AGE 17, SMOKED 1PPD ,QUIT 1985 Past Drug Use History: None Reported - Past Family History Father Family Medical History: Congestive Heart Failure (CHF) Additional Family Medical History / Comment(s): AGE 78 Mother Additional Family Medical History / Comment(s): [place]- AGE 74. AN AUNT HAD BRAIN AND ABD ANUERYSM. General Exam - General Exam Comments Initial Comments: This is a well-developed well-nourished awake alert oriented 3 female Limitations: no limitations General appearance: alert, anxious Head exam: Present: atraumatic, normocephalic, normal inspection Eye exam: Present: normal appearance, PERRL, EOMI. Absent: scleral icterus, conjunctival injection, periorbital swelling ENT exam: Present: other (Boggy nasal mucosa dull tympanic membranes bilaterally no pharyngeal exudate or erythema seen. Some discomfort to percussion over the sinuses.) Neck exam: Present: normal inspection, full ROM. Absent: tenderness, meningismus, lymphadenopathy Respiratory exam: Present: wheezes, decreased breath sounds Cardiovascular Exam: Present: tachycardia GI/Abdominal exam: Present: soft, normal bowel sounds. Absent: distended, tenderness, guarding, rebound, rigid Extremities exam: Present: normal inspection, full ROM, normal capillary refill. Absent: tenderness, pedal edema, joint swelling, calf tenderness Back exam: Present: normal inspection Neurological exam: Present: alert, oriented X3, CN II-XII intact Psychiatric exam: Present: normal affect, normal mood Skin exam: Present: warm, dry, intact, normal color. Absent: rash Course Vital Signs 11/04/16 11/04/16 11/04/16 19:58 20:24 21:04 Temperature 103.5 F H 102 F H Pulse Rate 118 H 88 91 Respiratory 20 13 Rate Blood Pressure 132/68 156/67 O2 Sat by Pulse 94 L 95 Oximetry 11/04/16 11/04/16 21:20 21:48 Temperature 100.9 F H Pulse Rate 102 H 100 Respiratory 20 Rate Blood Pressure 121/56 O2 Sat by Pulse 98 Oximetry Medical Decision Making - Medical Decision Making Patient is feeling much improved I did reevaluate her lungs are clear with good aeration bilaterally no evidence of any crepitus crackles or rhonchi. Patient will be discharged she does have evidence of sinusitis and bronchospasm. She will be given a new prescription for a DuoNeb be using her nebulizer as well as a Combivent inhaler oral steroids and antibiotics. - Lab Data Result diagrams: 11/04/16 21:19 11/04/16 21:19 Lab Results 11/04/16 11/04/16 11/04/16 Range/Units 21:10 21:19 21:19 WBC 11.2 H (3.8-10.6) k/uL RBC 4.28 (3.80-5.40) m/uL Hgb 13.4 (11.4-16.0) gm/dL Hct 39.9 (34.0-46.0) % MCV 93.2 (80.0-100.0) fL MCH 31.4 (25.0-35.0) pg MCHC 33.7 (31.0-37.0) g/dL RDW 13.0 (11.5-15.5) % Plt Count 218 (150-450) k/uL Neutrophils % 80 % Lymphocytes % 12 % Monocytes % 5 % Eosinophils % 1 % Basophils % 0 % Neutrophils # 8.9 H (1.3-7.7) k/uL Lymphocytes # 1.3 (1.0-4.8) k/uL Monocytes # 0.6 (0-1.0) k/uL Eosinophils # 0.1 (0-0.7) k/uL Basophils # 0.0 (0-0.2) k/uL PT 11.1 (9.0-12.0) sec INR 1.1 (<1.1) APTT 25.0 (22.0-30.0) sec Sodium (137-145) mmol/L Potassium (3.5-5.1) mmol/L Chloride (98-107) mmol/L Carbon Dioxide (22-30) mmol/L Anion Gap mmol/L BUN (7-17) mg/dL Creatinine (0.52-1.04) mg/dL Est GFR (MDRD) Af Amer (>60 ml/min/1.73 sqM) Est GFR (MDRD) Non-Af (>60 ml/min/1.73 sqM) Glucose (74-99) mg/dL Plasma Lactic Acid Lorenzo (0.7-2.0) mmol/L Calcium (8.4-10.2) mg/dL Magnesium (1.6-2.3) mg/dL Total Bilirubin (0.2-1.3) mg/dL AST (14-36) U/L ALT (9-52) U/L Alkaline Phosphatase (38-126) U/L Total Creatine Kinase (30-135) U/L CK-MB (CK-2) (0.0-2.4) ng/mL CK-MB (CK-2) Rel Index Troponin I (0.000-0.034) ng/mL NT-Pro-B Natriuret Pep pg/mL Total Protein (6.3-8.2) g/dL Albumin (3.5-5.0) g/dL Influenza Type A RNA Not Detected (Not Detectd) Influenza Type B (PCR) Not Detected (Not Detectd) 11/04/16 11/04/16 11/04/16 Range/Units 21:19 21:19 21:19 WBC (3.8-10.6) k/uL RBC (3.80-5.40) m/uL Hgb (11.4-16.0) gm/dL Hct (34.0-46.0) % MCV (80.0-100.0) fL MCH (25.0-35.0) pg MCHC (31.0-37.0) g/dL RDW (11.5-15.5) % Plt Count (150-450) k/uL Neutrophils % % Lymphocytes % % Monocytes % % Eosinophils % % Basophils % % Neutrophils # (1.3-7.7) k/uL Lymphocytes # (1.0-4.8) k/uL Monocytes # (0-1.0) k/uL Eosinophils # (0-0.7) k/uL Basophils # (0-0.2) k/uL PT (9.0-12.0) sec INR (<1.1) APTT (22.0-30.0) sec Sodium 138 (137-145) mmol/L Potassium 4.1 (3.5-5.1) mmol/L Chloride 105 (98-107) mmol/L Carbon Dioxide 24 (22-30) mmol/L Anion Gap 9 mmol/L BUN 11 (7-17) mg/dL Creatinine 0.81 (0.52-1.04) mg/dL Est GFR (MDRD) Af Amer >60 (>60 ml/min/1.73 sqM) Est GFR (MDRD) Non-Af >60 (>60 ml/min/1.73 sqM) Glucose 113 H (74-99) mg/dL Plasma Lactic Acid Lorenzo (0.7-2.0) mmol/L Calcium 9.0 (8.4-10.2) mg/dL Magnesium 1.8 (1.6-2.3) mg/dL Total Bilirubin 1.0 (0.2-1.3) mg/dL AST 25 (14-36) U/L ALT 30 (9-52) U/L Alkaline Phosphatase 63 (38-126) U/L Total Creatine Kinase 53 (30-135) U/L CK-MB (CK-2) <0.2 (0.0-2.4) ng/mL CK-MB (CK-2) Rel Index Troponin I <0.012 (0.000-0.034) ng/mL NT-Pro-B Natriuret Pep 284 pg/mL Total Protein 6.6 (6.3-8.2) g/dL Albumin 3.8 (3.5-5.0) g/dL Influenza Type A RNA (Not Detectd) Influenza Type B (PCR) (Not Detectd) 11/04/16 Range/Units 21:19 WBC (3.8-10.6) k/uL RBC (3.80-5.40) m/uL Hgb (11.4-16.0) gm/dL Hct (34.0-46.0) % MCV (80.0-100.0) fL MCH (25.0-35.0) pg MCHC (31.0-37.0) g/dL RDW (11.5-15.5) % Plt Count (150-450) k/uL Neutrophils % % Lymphocytes % % Monocytes % % Eosinophils % % Basophils % % Neutrophils # (1.3-7.7) k/uL Lymphocytes # (1.0-4.8) k/uL Monocytes # (0-1.0) k/uL Eosinophils # (0-0.7) k/uL Basophils # (0-0.2) k/uL PT (9.0-12.0) sec INR (<1.1) APTT (22.0-30.0) sec Sodium (137-145) mmol/L Potassium (3.5-5.1) mmol/L Chloride (98-107) mmol/L Carbon Dioxide (22-30) mmol/L Anion Gap mmol/L BUN (7-17) mg/dL Creatinine (0.52-1.04) mg/dL Est GFR (MDRD) Af Amer (>60 ml/min/1.73 sqM) Est GFR (MDRD) Non-Af (>60 ml/min/1.73 sqM) Glucose (74-99) mg/dL Plasma Lactic Acid Lorenzo 1.8 (0.7-2.0) mmol/L Calcium (8.4-10.2) mg/dL Magnesium (1.6-2.3) mg/dL Total Bilirubin (0.2-1.3) mg/dL AST (14-36) U/L ALT (9-52) U/L Alkaline Phosphatase (38-126) U/L Total Creatine Kinase (30-135) U/L CK-MB (CK-2) (0.0-2.4) ng/mL CK-MB (CK-2) Rel Index Troponin I (0.000-0.034) ng/mL NT-Pro-B Natriuret Pep pg/mL Total Protein (6.3-8.2) g/dL Albumin (3.5-5.0) g/dL Influenza Type A RNA (Not Detectd) Influenza Type B (PCR) (Not Detectd) - EKG Data -: EKG Interpreted by In EKG shows normal: sinus rhythm (Sinus rhythm a rate of 99 appear of 01 32 QRS duration 80 QT/QTC of 3:30/433 st-t wave changes this appears be a normal EKG) - Radiology Data Radiology results: report reviewed (I did review the x-rays and report no acute findings.), image reviewed Disposition Clinical Impression: Acute bronchospasm, Sinusitis, Febrile illness Disposition: HOME SELF-CARE Condition: Good Instructions: Fever in Adults (ED), Sinusitis (ED), Bronchospasm (ED) Prescriptions: Ipratropium-Albuterol Nebulize [Duoneb 0.5 mg-3 mg/3 ml Soln] 3 ml INHALATION Q6HR PRN #120 neb PRN Reason: Dyspnea Ipratropium/Albuterol Sulfate [Combivent Respimat Inhaler] 2 puff INHALATION QID #1 inhaler Levofloxacin [Levaquin] 500 mg PO DAILY #9 tab predniSONE 20 mg PO BID #10 tab
[2016-11-04 21:34] LABS: Basophils % (A) 0 %; CH 31.2; CHCM 33.6; Eosinophils # (A) 0.1 k/uL (0-0.7); Eosinophils % (A) 1 %; HCT 39.9 % (34.0-46.0); HDW 2.38; HGB 13.4 gm/dL (11.4-16.0); Luc # (Auto) 0.23; Luc % (Auto) 2; Lymphocytes # (A) 1.3 k/uL (1.0-4.8); Lymphocytes % (A) 12 %; MCH 31.4 pg (25.0-35.0); MCHC 33.7 g/dL (31.0-37.0); MCV 93.2 fL (80.0-100.0); Mean Platelet Volume 6.6; Monocytes # (A) 0.6 k/uL (0-1.0); Monocytes % (A) 5 %; Neutrophils # (A) 8.9 k/uL (1.3-7.7); Neutrophils % (A) 80 %; RBC 4.28 m/uL (3.80-5.40); WBC 11.2 k/uL (3.8-10.6); WBC (Perox) 12.04
--- NOTE | 2016-11-04 21:44 | XR ---
EXAMINATION TYPE: XR chest 2V DATE OF EXAM: 11/04/2016 9:35 PM COMPARISON: 08/09/2016 HISTORY: Fever TECHNIQUE: Frontal and lateral views of the chest are obtained. FINDINGS: There is no heart failure nor confluent pneumonic infiltrate. There are no hilar masses. C ostophrenic angles are clear. There are chest leads. IMPRESSION: No active cardiopulmonary disease. No change.
[2016-11-04 21:46] LABS: ALT 30 U/L (9-52); AST 25 U/L (14-36); Alkaline Phosphatase 63 U/L (38-126); Anion Gap 9 mmol/L; Blood Urea Nitrogen 11 mg/dL (7-17); Carbon Dioxide 24 mmol/L (22-30); Chloride 105 mmol/L (98-107); Glucose 113 mg/dL (74-99); Magnesium 1.8 mg/dL (1.6-2.3); Non-African American GFR(MDRD) >60 (>60 ml/min/1.73 sqM); Potassium 4.1 mmol/L (3.5-5.1); Sodium 138 mmol/L (137-145); Total Protein 6.6 g/dL (6.3-8.2)
[2016-11-04 21:51] VITALS: RESP 20; TEMP 100.9
[2016-11-04 21:56] LABS: INR 1.1 (<1.1); Prothrombin Time 11.1 sec (9.0-12.0)
[2016-11-04 21:58] LABS: Creatine Kinase 53 U/L (30-135)
[2016-11-04 22:10] LABS: Creatine Kinase MB <0.2 ng/mL (0.0-2.4); Troponin I <0.012 ng/mL (0.000-0.034)
[2016-11-04] MEDS ORDERED: LEVOFLOXACIN 750 MG TAB PO STA (22:41)
[2016-11-04 22:58] VITALS: BP 104/55; PULSE 88
== END 2016-11-04 22:58 | disposition home or self-care (01) ==
LOC: EC 19:47
DX: J98.01 Acute bronchospasm (principal); J32.9 Chronic sinusitis, unspecified; R50.9 Fever, unspecified; E78.5 Hyperlipidemia, unspecified; E07.9 Disorder of thyroid, unspecified; Z86.711 Personal history of pulmonary embolism; Z87.891 Personal history of nicotine dependence; Z79.899 Other long term (current) drug therapy; Z88.0 Allergy status to penicillin
CPT/HCPCS: 36415; 71020; 80053; 82550; 82553; 83605; 83735; 83880; 84484; 85025; 85610; 85730; 87040; 87502; 93005; 94640; 96360; 99284

== ENCOUNTER → 2016-12-11 | Outpatient (CLI) | payer OTHER ==
--- NOTE | 2016-12-12 10:48 | ECHOF ---
Referral Reason:i27.0 pulmonarty htn MEASUREMENTS -------- HEIGHT: 167.6 cm WEIGHT: 117.9 kg BP: 143/89 RVIDd: 3.3 cm (< 3.3) IVSd: 1.4 cm (0.6 - 1.1) LVIDd: 4.8 cm (3.9 - 5.3) LVPWd: 1.5 cm (0.6 - 1.1) IVSs: 2.2 cm LVIDs: 3.4 cm LVPWs: 2.0 cm LAESV Index (A-L): 10.40 ml/m Ao Diam: 3.0 cm (2.0 - 3.7) AV Cusp: 2.0 cm (1.5 - 2.6) LA Diam: 3.3 cm (2.7 - 3.8) MV EXCURSION: 18.807 mm (> 18.000) MV EF SLOPE: 74 mm/s (70 - 150) EPSS: 0.9 cm MV E Soy: 0.43 m/s MV DecT: 375 ms MV A Soy: 0.61 m/s MV E/A Ratio: 0.70 RAP: 5.00 mmHg RVSP: 19.15 mmHg FINDINGS -------- Sinus rhythm. This was a technically adequate study. There is moderate concentric left ventricular hypertrophy. Overall left ventricular systolic function is normal with, an EF between 55 - 60 %. The right ventricle is normal in size and function. Normal LA size by volume 22+/-6 ml/m2. The right atrium is normal in size. Aortic valve is trileaflet and is mildly thickened. There is no evidence of aortic regurgitation. There is no evidence of aortic stenosis. The mitral valve leaflets are mildly thickened. Mild mitral annular calcification present. There is trace to mild mitral regurgitation. Trace tricuspid regurgitation present. There is no evidence of pulmonary hypertension. The right ventricular systolic pressure, as measured by Doppler, is 19.15mmHg. The pulmonic valve was not well visualized. The aortic root size is normal. Normal inferior vena cava with normal inspiratory collapse consistent with estimated right atrial pressure of 5 mmHg. The pericardium is normal. There is no pericardial effusion. CONCLUSIONS -------- 1. Sinus rhythm. 2. There is no evidence of pulmonary hypertension. 3. The right ventricular systolic pressure, as measured by Doppler, is 19.15mmHg. 4. The pulmonic valve was not well visualized. 5. The aortic root size is normal. 6. There is no pericardial effusion. 7. There is moderate concentric left ventricular hypertrophy. 8. Overall left ventricular systolic function is normal with, an EF between 55 - 60 %. 9. Normal LA size by volume 22+/-6 ml/m2. 10. Aortic valve is trileaflet and is mildly thickened. 11. The mitral valve leaflets are mildly thickened. 12. Mild mitral annular calcification present. 13. There is trace to mild mitral regurgitation. 14. Trace tricuspid regurgitation present. WIRE MACHINE OPERATOR: Felipe Miles RDCS
== END | disposition home or self-care (01) ==
LOC: RADECHMAIN 12:13
PROVIDERS: ATTEND Internal Medicine Critical Care Medicine
DX: I08.1 Rheumatic disorders of both mitral and tricuspid valves (principal)
CPT/HCPCS: 93306

== ENCOUNTER → 2016-12-23 | Outpatient (CLI) | payer OTHER ==
--- NOTE | 2016-12-24 08:52 | MM ---
Reason for exam: screening (asymptomatic). Last mammogram was performed 1 year ago. History: Patient is postmenopausal. Physical Findings: A clinical breast exam by your physician is recommended on an annual basis and results should be correlated with mammographic findings. MG Screening Mammo w CAD Bilateral CC and MLO view(s) were taken. Prior study comparison: December 22, 2015, bilateral MG screening mammo w CAD. May 31, 2013, mammogram, performed at [facility]. There are scattered fibroglandular densities. There is chronic nodularity in the right breast. No significant changes when compared with prior studies. ASSESSMENT: Negative, BI-RAD 1 RECOMMENDATION: Routine screening mammogram of both breasts in 1 year.
== END | disposition home or self-care (01) ==
LOC: RADMAMWWP 13:29
PROVIDERS: ATTEND Family Medicine
DX: Z12.31 Encounter for screening mammogram for malignant neoplasm of breast (principal)

== ENCOUNTER → 2017-10-17 | Outpatient (CLI) | payer OTHER ==
--- NOTE | 2017-10-17 12:43 | US ---
EXAMINATION TYPE: US abdomen comp/pelvis limited DATE OF EXAM: 10/17/2017 COMPARISON: NONE CLINICAL HISTORY: R10.9 Flank pain. Right flank and back pain x 1 month, history of cholecystectomy a nd hernia repair EXAM MEASUREMENTS: Liver Length: 16.5 cm Gallbladder Wall: surgically absent CBD: 0.5 cm Spleen: 10.3 cm Right Kidney: 11.1 x 4.7 x 5.2 cm Left Kidney: 10.7 x 5.8 x 4.9 cm Difficult and limited study due to patient body habitus Pancreas: obscured by overlying midline bowel gas Liver: visualized portions appear somewhat heterogeneous Gallbladder: surgically absent CBD: visualized portions wnl Spleen: visualized portions wnl Right Kidney: visualized portions wnl Left Kidney: visualized portions wnl Upper IVC: wnl Abd Aorta: visualized portions wnl Bladder: not fully distended Bilateral Jets Seen no Exam noted suboptimal due to patient's body habitus and shadowing from overlying bowel gas. Pancreas is suboptimally evaluated on images saved. Visualized liver is heterogeneously hyperechoic. Evaluatio n for focal masses is suboptimal due to the heterogeneity. Gallbladder is surgically absent. Bladder is poorly distended and thus suboptimally evaluated. IMPRESSION: Suboptimal study, no acute finding is seen to account for patient's symptoms. Probable fa tty infiltration of liver is noted.
== END | disposition home or self-care (01) ==
LOC: RADUSWWP 08:48
PROVIDERS: ATTEND Family Medicine
DX: R10.9 Unspecified abdominal pain (principal)
CPT/HCPCS: 76700; 76857

== ENCOUNTER 2018-01-12 12:30 | Emergency (ER) | payer OTHER ==
[2018-01-12 12:37] VITALS: RESP 18
--- NOTE | 2018-01-12 13:19 | ED ---
General Adult HPI - General Chief complaint: Shortness of Breath Stated complaint: poss PE Time Seen by Provider: 01/12/18 13:19 Source: patient Mode of arrival: ambulatory Limitations: no limitations - History of Present Illness Initial comments: Natty is a 62 yo female with PMH significant for unprovoked pulmonary embolism diagnosed last year, currently on Xarelto who presents to the ED today for evaluation of shortness of breath and chest heaviness. She reports that she has had a minimally productive cough for approximately 3 weeks duration, she reports that this has been improving over the past couple of days but she is beginning to feel progressively more short of breath and an experiencing some chest heaviness. She contacted her primary care physician who advised her to come to the ER for evaluation of possible recurrent or worsening pulmonary embolism. Patient was evaluated in July & February 2017 at which time she had a CT identified pulmonary embolism. Patient denies any fevers, chills, nausea, vomiting or any change in bowel or bladder habits. She denies any headache, vision changes, nasal congestion or rhinorrhea. She reports that she is otherwise been in her usual state of health but is concerned about the pressure she is experiencing her chest. - Related Data Home Medications Medication Instructions Recorded Confirmed Levothyroxine Sodium [Synthroid] 150 mcg PO DAILY 08/09/16 01/12/18 Atorvastatin [Lipitor] 40 mg PO HS 06/07/17 01/12/18 Furosemide [Lasix] 20 mg PO DAILY 06/07/17 01/12/18 Metoprolol Tartrate 25 mg PO DAILY 06/07/17 01/12/18 Cholecalciferol [Vitamin D3] 1,000 unit PO DAILY 01/12/18 01/12/18 Rivaroxaban [Xarelto] 20 mg PO DAILY 01/12/18 01/12/18 Previous Rx's Medication Instructions Recorded predniSONE [Deltasone] 40 mg PO DAILY 5 Days #10 tablet 01/12/18 Allergies Allergy/AdvReac Type Severity Reaction Status Date / Time Penicillins Allergy Swelling Verified 01/12/18 13:20 Review of Systems ROS Statement: Those systems with pertinent positive or pertinent negative responses have been documented in the HPI. ROS Other: All systems not noted in ROS Statement are negative. Constitutional: Denies: fever Eyes: Denies: eye pain ENT: Denies: ear pain Respiratory: Reports: cough, dyspnea. Denies: wheezes Cardiovascular: Reports: chest pain (chest pressure) Endocrine: Denies: fatigue Gastrointestinal: Denies: abdominal pain Genitourinary: Denies: urgency, dysuria Musculoskeletal: Denies: back pain Skin: Denies: rash, lesions Psychiatric: Denies: anxiety, depression Hematological/Lymphatic: Denies: easy bleeding, easy bruising Past Medical History Past Medical History: Chest Pain / Angina, Hyperlipidemia, Pneumonia, Pulmonary Embolus (PE), Thyroid Disorder Additional Past Medical History / Comment(s): PAPITATIONS, PE with residual clots History of Any Multi-Drug Resistant Organisms: None Reported Past Surgical History: Section, Cholecystectomy, Hernia Repair, Orthopedic Surgery, Tonsillectomy Additional Past Surgical History / Comment(s): ONE DENTAL IMPLANT, COLONOSCOPY, HEMORRHOIDECTOMY,PILONIDAL CYST REMOVED AGE 17, CERVICAL BX-PRE CANCEROUS CELLS- HAD PROCEDURE , HAD BROKEN IUD REMOVED AND PT STATED THEY WENT IN LIKE HAVING A TO REMOVED BROKEN PEICES,DOMINGUEZ KNEE REPLACEMENTS Past Anesthesia/Blood Transfusion Reactions: No Reported Reaction Past Psychological History: No Psychological Hx Reported Smoking Status: Former smoker Past Alcohol Use History: None Reported, Occasional Past Drug Use History: None Reported - Past Family History Father Family Medical History: Congestive Heart Failure (CHF) Additional Family Medical History / Comment(s): AGE 78 Mother Additional Family Medical History / Comment(s): PARKINSONS- AGE 74. AN AUNT HAD BRAIN AND ABD ANUERYSM. General Exam Limitations: no limitations General appearance: alert, in no apparent distress Head exam: Present: atraumatic, normocephalic Eye exam: Present: normal appearance, PERRL ENT exam: Present: normal exam Neck exam: Present: normal inspection. Absent: tenderness Respiratory exam: Present: wheezes (mild expiratory wheeze) Cardiovascular Exam: Present: regular rate, normal rhythm. Absent: tachycardia , systolic murmur, diastolic murmur GI/Abdominal exam: Present: soft. Absent: distended, tenderness Rectal exam: Present: deferred Extremities exam: Present: normal inspection, normal capillary refill. Absent: pedal edema Back exam: Present: normal inspection Neurological exam: Present: alert, oriented X3 Psychiatric exam: Present: normal affect, normal mood Skin exam: Present: warm, dry Course Vital Signs 01/12/18 01/12/18 01/12/18 12:32 13:59 15:17 Temperature 98.5 F Pulse Rate 65 60 Respiratory 18 18 18 Rate Blood Pressure 121/70 126/58 O2 Sat by Pulse 96 97 Oximetry 01/12/18 01/12/18 01/12/18 15:22 15:28 15:42 Temperature 97.9 F Pulse Rate 57 L 60 64 Respiratory 18 Rate Blood Pressure 133/62 O2 Sat by Pulse 97 Oximetry 01/12/18 16:20 Temperature 98.2 F Pulse Rate 66 Respiratory 18 Rate Blood Pressure 128/62 O2 Sat by Pulse 98 Oximetry EKG Findings - EKG Comments: EKG Findings:: EKG at 1433 - rate is 55, rhythm is sinus bradycardia, normal axis, no meningeal intervals, no acute ST elevations or depressions, no evidence of acute right heart strain. No evidence of acute ischemia or infarction. Medical Decision Making - Medical Decision Making Patient was seen and evaluated, history was obtained from the patient review of medical records She with a history of pulmonary embolism in the past, currently on oral anticoagulant Patient with 3 weeks of nonproductive cough now with some chest tightness and heaviness, patient concern that this is similar to previous pulmonary embolisms. Patient is not hypoxic, not tachycardic, on exam I am more concerned that the patient may have an acute bronchitis. Patient has not attempted to take any breathing treatments at home for this Labs and imaging were ordered Labs and imaging unremarkable CT pulmonary embolism study was negative for acute pulmonary embolism. Results were discussed with patient who expresses significant relief that there is no pulmonary embolism. I advised her to stay on her oral anticoagulant, and addition I do feel that she has bronchitis. We will treat with prednisone for 5 days. Patient is agreeable to this. Patient has nebulizer with [employer] home and will take these, I advised patient she can take a nebulizer up to once every 4 hours however don't think that she will need it that frequently as her symptoms seem to be minimal. I advised her to use the nebulizer at least 2 times daily. All questions pertaining to care were answered to the best of my ability, patient was discharged home in stable condition with a diagnosis of bronchitis and a plan to use her nebulizer and steroids. Patient was advised to return to the hospital should she develop any worsening chest pressure, chest pain, shortness breath or any new or concerning symptoms. - Lab Data Result diagrams: 01/12/18 13:50 01/12/18 13:50 Lab Results 01/12/18 01/12/18 01/12/18 Range/Units 13:50 13:50 13:50 WBC 5.5 (3.8-10.6) k/uL RBC 4.78 (3.80-5.40) m/uL Hgb 14.2 (11.4-16.0) gm/dL Hct 43.0 (34.0-46.0) % MCV 89.9 (80.0-100.0) fL MCH 29.6 (25.0-35.0) pg MCHC 32.9 (31.0-37.0) g/dL RDW 13.7 (11.5-15.5) % Plt Count 255 (150-450) k/uL Neutrophils % 52 % Lymphocytes % 34 % Monocytes % 8 % Eosinophils % 3 % Basophils % 1 % Neutrophils # 2.9 (1.3-7.7) k/uL Lymphocytes # 1.9 (1.0-4.8) k/uL Monocytes # 0.4 (0-1.0) k/uL Eosinophils # 0.2 (0-0.7) k/uL Basophils # 0.1 (0-0.2) k/uL PT (9.0-12.0) sec INR (<1.2) APTT (22.0-30.0) sec Sodium 141 (137-145) mmol/L Potassium 4.1 (3.5-5.1) mmol/L Chloride 104 (98-107) mmol/L Carbon Dioxide 27 (22-30) mmol/L Anion Gap 10 mmol/L BUN 14 (7-17) mg/dL Creatinine 0.85 (0.52-1.04) mg/dL Est GFR (CKD-EPI)AfAm 85 (>60 ml/min/1.73 sqM) Est GFR (CKD-EPI)NonAf 73 (>60 ml/min/1.73 sqM) Glucose 84 (74-99) mg/dL Calcium 9.5 (8.4-10.2) mg/dL Total Bilirubin 0.6 (0.2-1.3) mg/dL AST 33 (14-36) U/L ALT 46 (9-52) U/L Alkaline Phosphatase 59 (38-126) U/L Troponin I (0.000-0.034) ng/mL NT-Pro-B Natriuret Pep 44 pg/mL Total Protein 6.9 (6.3-8.2) g/dL Albumin 4.2 (3.5-5.0) g/dL 01/12/18 01/12/18 Range/Units 13:50 13:50 WBC (3.8-10.6) k/uL RBC (3.80-5.40) m/uL Hgb (11.4-16.0) gm/dL Hct (34.0-46.0) % MCV (80.0-100.0) fL MCH (25.0-35.0) pg MCHC (31.0-37.0) g/dL RDW (11.5-15.5) % Plt Count (150-450) k/uL Neutrophils % % Lymphocytes % % Monocytes % % Eosinophils % % Basophils % % Neutrophils # (1.3-7.7) k/uL Lymphocytes # (1.0-4.8) k/uL Monocytes # (0-1.0) k/uL Eosinophils # (0-0.7) k/uL Basophils # (0-0.2) k/uL PT 11.8 (9.0-12.0) sec INR 1.2 H (<1.2) APTT 27.6 (22.0-30.0) sec Sodium (137-145) mmol/L Potassium (3.5-5.1) mmol/L Chloride (98-107) mmol/L Carbon Dioxide (22-30) mmol/L Anion Gap mmol/L BUN (7-17) mg/dL Creatinine (0.52-1.04) mg/dL Est GFR (CKD-EPI)AfAm (>60 ml/min/1.73 sqM) Est GFR (CKD-EPI)NonAf (>60 ml/min/1.73 sqM) Glucose (74-99) mg/dL Calcium (8.4-10.2) mg/dL Total Bilirubin (0.2-1.3) mg/dL AST (14-36) U/L ALT (9-52) U/L Alkaline Phosphatase (38-126) U/L Troponin I <0.012 (0.000-0.034) ng/mL NT-Pro-B Natriuret Pep pg/mL Total Protein (6.3-8.2) g/dL Albumin (3.5-5.0) g/dL Disposition Clinical Impression: Bronchitis Disposition: HOME SELF-CARE Condition: Good Instructions: Acute Bronchitis (ED) Prescriptions: predniSONE [Deltasone] 40 mg PO DAILY 5 Days #10 tablet Is patient prescribed a controlled substance at d/c from ED?: No Referrals: Mariaa Duncan MD [Primary Care Provider] - 1-2 days
[2018-01-12] MEDS ORDERED: IPRATROPIUM-ALBUTEROL 3 ML NEB INHALATION STA (13:38)
[2018-01-12 14:15] LABS: Basophils # (A) 0.1 k/uL (0-0.2); Basophils % (A) 1 %; Eosinophils # (A) 0.2 k/uL (0-0.7); Eosinophils % (A) 3 %; HGB 14.2 gm/dL (11.4-16.0); Lymphocytes # (A) 1.9 k/uL (1.0-4.8); Lymphocytes % (A) 34 %; MCH 29.6 pg (25.0-35.0); MCHC 32.9 g/dL (31.0-37.0); MCV 89.9 fL (80.0-100.0); Mean Platelet Volume 6.9; Monocytes # (A) 0.4 k/uL (0-1.0); Monocytes % (A) 8 %; Neutrophils # (A) 2.9 k/uL (1.3-7.7); Neutrophils % (A) 52 %; Platelet Count 255 k/uL (150-450); RBC 4.78 m/uL (3.80-5.40); RDW 13.7 % (11.5-15.5); WBC 5.5 k/uL (3.8-10.6)
--- NOTE | 2018-01-12 14:19 | XR ---
EXAMINATION TYPE: XR chest 2V DATE OF EXAM: 01/12/2018 COMPARISON: 11/04/2016 HISTORY: 62-year-old female difficulty in breathing TECHNIQUE: PA and lateral views FINDINGS: The heart is normal size. Aorta and pulmonary vasculature within normal limits. Degenerative sclerosi s at the left first rib end. Strandy areas of atelectasis peripheral mid and lower lungs. No consolid ation or pleural effusion. IMPRESSION: No acute cardiopulmonary processes.
[2018-01-12 14:25] LABS: INR 1.2 (<1.2); Partial Thromboplastin Time 27.6 sec (22.0-30.0); Prothrombin Time 11.8 sec (9.0-12.0)
[2018-01-12 14:40] LABS: Albumin 4.2 g/dL (3.5-5.0); Calcium 9.5 mg/dL (8.4-10.2); Potassium 4.1 mmol/L (3.5-5.1); Total Bilirubin 0.6 mg/dL (0.2-1.3); Total Protein 6.9 g/dL (6.3-8.2)
--- NOTE | 2018-01-12 15:43 | CT ---
EXAMINATION TYPE: CT chest angio for PE DATE OF EXAM: 01/12/2018 COMPARISON: NONE HISTORY: SOB, hx of multiple PE. CT DLP: 548.1 mGycm. Automated Exposure Control for Dose Reduction was Utilized. CONTRAST: CTA scan of the thorax is performed with IV Contrast, patient injected with 100 mL of Isovue 370, pul monary embolism protocol. MIP Images are created on CT scanner and reviewed. FINDINGS: LUNGS: The lungs are grossly clear, there is no concerning parenchymal mass or nodule identified. T here is no pleural effusion or pneumothorax seen. The tracheobronchial tree is patent. MEDIASTINUM: There is satisfactory enhancement of the pulmonary artery and its branches, there is no CT evidence for pulmonary embolism. There are no greater than 1 cm hilar or mediastinal lymph nodes. Heart is mildly enlarged. No pericardial effusion. Main pulmonary artery is enlarged measuring 3.3 c m. This may clinically correlate with pulmonary drop retention. Scant coronary arteries also patients are seen within the left anterior descending coronary artery. Aortic root is within normal limits me asuring 3.6 cm. OTHER: Moderate pancreatic parenchymal atrophy is incidentally identified. There is reflux of contras t into the inferior vena cava and proximal hepatic veins. Low attenuation of the hepatic parenchyma i s seen and approaching criteria for hepatic steatosis. Gallbladder surgically absent. Old healed frac ture deformity seen of the right lateral margin of rib 8. Moderate multilevel degenerative changes of the thoracic spine are noted. IMPRESSION: 1. No evidence of pulmonary embolus. 2. Slight reflux of contrast into the inferior vena cava and hepatic veins in combination with cardio megaly may relate to a degree of right-sided heart failure. 3. Enlargement of the main pulmonary artery suggestive of underlying pulmonary arterial hypertension.
[2018-01-12 16:21] VITALS: BP 128/62; PULSE 66; TEMP 98.2
== END 2018-01-12 16:21 | disposition home or self-care (01) ==
LOC: EC 12:30
DX: J40 Bronchitis, not specified as acute or chronic (principal); E78.5 Hyperlipidemia, unspecified; E07.9 Disorder of thyroid, unspecified; Z86.711 Personal history of pulmonary embolism; Z87.891 Personal history of nicotine dependence; Z85.41 Personal history of malignant neoplasm of cervix uteri; Z79.899 Other long term (current) drug therapy; Z79.01 Long term (current) use of anticoagulants; Z88.0 Allergy status to penicillin; Z96.653 Presence of artificial knee joint, bilateral
CPT/HCPCS: 36415; 94640; 93005; 83880; 80053; 84484; 85025; 85610; 85730; 71046; 71275; 99285; Q9967

== ENCOUNTER → 2018-02-16 | Outpatient (CLI) | payer OTHER ==
--- NOTE | 2018-02-17 14:03 | MM ---
Reason for exam: screening (asymptomatic). Last mammogram was performed 1 year and 2 months ago. History: Patient is postmenopausal. Physical Findings: A clinical breast exam by your physician is recommended on an annual basis and results should be correlated with mammographic findings. MG Screening Mammo w CAD Bilateral CC and MLO view(s) were taken. Prior study comparison: December 23, 2016, bilateral MG screening mammo w CAD. December 22, 2015, bilateral MG screening mammo w CAD. There are scattered fibroglandular densities. No significant changes when compared with prior studies. ASSESSMENT: Benign, BI-RAD 2 RECOMMENDATION: Routine screening mammogram of both breasts in 1 year.
== END | disposition home or self-care (01) ==
LOC: RADMAMWWP 13:23
PROVIDERS: ATTEND Family Medicine
DX: Z12.31 Encounter for screening mammogram for malignant neoplasm of breast (principal)
CPT/HCPCS: 77067

== ENCOUNTER → 2018-03-11 | Outpatient (CLI) | payer OTHER ==
--- NOTE | 2018-03-11 15:47 | US ---
EXAMINATION TYPE: US pelvis complete transvag DATE OF EXAM: 03/11/2018 COMPARISON: NONE CLINICAL HISTORY: 62-year-old female R10.2 OvaryPain. TECHNIQUE: Transabdominal sonographic images of the pelvis were acquired. Transvaginal sonographic i mages were medically necessary to better assess the following anatomy: Uterus and ovaries Date of LMP: Around age 39 FINDINGS: EXAM MEASUREMENTS: Uterus: 5.4 x 2.3 x 3.1 cm Endometrial Stripe: 0.3 cm Right Ovary: 1.5 x 0.8 x 0.7cm Left Ovary: Not visualized with certainty 1. Uterus: Anteverted. There is an apparent scar. There is a round focal fibroid measurin g 7 mm along the right anterior uterine body that appears partially intramural and partially subseros al. 2. Endometrium: wnl 3. Right Ovary: wnl 4. Left Ovary: Not visualized with certainty. Obscured by bowel gas 5. Bilateral Adnexa: wnl 6. Posterior cul-de-sac: wnl IMPRESSION: Apparent scar. 7 mm focal fibroid along the right anterior uterine body is partially subserosal and partially intram ural. Left ovary could not be visualized.
--- NOTE | 2018-03-12 07:22 | BD ---
EXAMINATION TYPE: Axial Bone Density DATE OF EXAM: 03/11/2018 COMPARISON: NONE CLINICAL HISTORY: Postmenopausal female Height: 5 FT 5 IN Weight: 283 RISK FACTORS HISTORY OF: Active: YES Postmenopausal woman: IN HER 40'S SOMETIME MEDICATIONS: Thyroid Medications: YES Which medication: LEVOTHYROXINE How Long: SINCE AGE 17 How Long: Additional Medications: LEVOTHYROXINE, D3, METOPROLOL, FUROSEMIDE, XARELTO,ATORVASTATIN Additional History: EXAM MEASUREMENTS: Bone mineral densitometry was performed using the [employer] System. Bone mineral density as measured about the Lumbar spine is: ----- L1-L4(G/cm2): 1.270 T Score Values are as follows: ----- L2: 0.2 ----- L3: 0.0 ----- L4: 1.1 ----- L1-L4: 0.8 BASELINE Bone mineral density about the R hip (g/cm2): 0.924 Bone mineral density about the L hip (g/cm2): 0.922 T Score values are as follows: -----R Neck: -0.8 -----L Neck: -0.8 -----R Total: 0.2 -----L Total: 0.4 BASELINE IMPRESSION: Normal (Values between +1 and -1 indicate normal bone mass). Consider repeating this study in 5 year s or sooner if there is some new clinical indication. NOTE: T-SCORE=SD OF THE YOUNG ADULT MEAN.
--- NOTE | 2018-03-12 09:34 | USB ---
Reason for exam: clinical finding. History: Patient is postmenopausal. Physical Findings: Nurse did not find any significant physical abnormalities on exam. US Breast LT Left complete breast ultrasound includes all four quadrants, the retroareolar region and axilla. Finding demonstrates no cystic or solid lesion seen. Normal small node noted in the axilla. Patient reports "grainy" palpable abnormality in the left axilla. These results were verbally communicated with the patient and result sheet given to the patient on 03/11/18. ASSESSMENT: Negative, BI-RAD 1 RECOMMENDATION: Return to routine screening mammogram schedule for both breasts. Manage on a clinical basis with regard to any suspicious palpable abnormality.
== END | disposition home or self-care (01) ==
LOC: RADBDWWP 14:39
PROVIDERS: ATTEND Family Medicine
DX: R92.8 Other abnormal and inconclusive findings on diagnostic imaging of breast (principal); D25.1 Intramural leiomyoma of uterus; D25.2 Subserosal leiomyoma of uterus; Z13.820 Encounter for screening for osteoporosis
CPT/HCPCS: 76830; 76856; 77080

== ENCOUNTER 2018-03-24 07:15 | Observation (INO) | payer OTHER ==
[2018-03-24] MEDS ORDERED: methylPREDNISolone SOD SUCCI 125 MG/2 ML VIAL IV STA (07:29)
[2018-03-24] MEDS ORDERED: IPRATROPIUM-ALBUTEROL 3 ML NEB INHALATION STA (07:29)
--- NOTE | 2018-03-24 07:31 | ED ---
General Adult HPI - General Source: patient, RN notes reviewed Mode of arrival: ambulatory Limitations: no limitations <Bruce Silverio - Last Filed: 03/24/18 10:47> <Andrew Barkley - Last Filed: 03/24/18 11:11> - General Chief complaint: Upper Respiratory Infection Stated complaint: bronchitis Time Seen by Provider: 03/24/18 07:24 - History of Present Illness Initial comments: 62-year-old female presents emergency Department chief complaint cough congestion since last Friday. Patient states symptoms are progressively getting worse. Patient states she just traveled back from [place]. Patient states that she did try albuterol treatment at home did not have much relief. Patient states that she does have a history of DVTs and she went to right calf pain though she currently takes Xarelto daily and has not missed any doses. She denies any pleuritic chest pain, chest pain, fever or chills. She does not do mild shortness of breath though she states that she is wheezing. Patient denies ear pain with complaints of mild sore throat. Denies headache, dizziness , neck pain. (Bruce Silverio) - Related Data Home Medications Medication Instructions Recorded Confirmed Levothyroxine Sodium [Synthroid] 150 mcg PO DAILY 08/09/16 03/24/18 Atorvastatin [Lipitor] 40 mg PO HS 06/07/17 03/24/18 Furosemide [Lasix] 20 mg PO DAILY 06/07/17 03/24/18 Metoprolol Tartrate 25 mg PO DAILY 06/07/17 03/24/18 Cholecalciferol [Vitamin D3] 3,000 unit PO DAILY 01/12/18 03/24/18 Rivaroxaban [Xarelto] 20 mg PO DAILY 01/12/18 03/24/18 Allergies Allergy/AdvReac Type Severity Reaction Status Date / Time Penicillins Allergy Swelling Verified 03/24/18 07:32 Review of Systems ROS Other: All systems not noted in ROS Statement are negative. <Bruce Silverio - Last Filed: 03/24/18 10:47> ROS Other: All systems not noted in ROS Statement are negative. <Andrew Barkley - Last Filed: 03/24/18 11:11> ROS Statement: Those systems with pertinent positive or pertinent negative responses have been documented in the HPI. Past Medical History Past Medical History: Chest Pain / Angina, Hyperlipidemia, Pneumonia, Pulmonary Embolus (PE), Thyroid Disorder Additional Past Medical History / Comment(s): PAPITATIONS, PE with residual clots History of Any Multi-Drug Resistant Organisms: None Reported Past Surgical History: Section, Cholecystectomy, Hernia Repair, Orthopedic Surgery, Tonsillectomy Additional Past Surgical History / Comment(s): ONE DENTAL IMPLANT, COLONOSCOPY, HEMORRHOIDECTOMY,PILONIDAL CYST REMOVED AGE 17, CERVICAL BX-PRE CANCEROUS CELLS- HAD PROCEDURE , HAD BROKEN IUD REMOVED AND PT STATED THEY WENT IN LIKE HAVING A TO REMOVED BROKEN PEICES,DOMINGUEZ KNEE REPLACEMENTS Past Anesthesia/Blood Transfusion Reactions: No Reported Reaction Past Psychological History: No Psychological Hx Reported Smoking Status: Former smoker Past Alcohol Use History: Rare Past Drug Use History: None Reported - Past Family History Father Family Medical History: Congestive Heart Failure (CHF) Additional Family Medical History / Comment(s): AGE 78 Mother Additional Family Medical History / Comment(s): PARKINSONS- AGE 74. AN AUNT HAD BRAIN AND ABD ANUERYSM. <Bruce Silverio M - Last Filed: 03/24/18 10:47> General Exam Limitations: no limitations General appearance: alert, in no apparent distress Head exam: Present: atraumatic, normocephalic, normal inspection Eye exam: Present: normal appearance, PERRL, EOMI. Absent: scleral icterus, conjunctival injection, periorbital swelling ENT exam: Present: normal exam, normal oropharynx, mucous membranes moist, TM's normal bilaterally, normal external ear exam Neck exam: Present: normal inspection, full ROM. Absent: tenderness, meningismus, lymphadenopathy Respiratory exam: Present: wheezes. Absent: normal lung sounds bilaterally, respiratory distress, rales, rhonchi, stridor Cardiovascular Exam: Present: regular rate, normal rhythm, normal heart sounds. Absent: systolic murmur, diastolic murmur, rubs, gallop, clicks Extremities exam: Present: normal capillary refill. Absent: pedal edema, calf tenderness Skin exam: Present: warm, dry, intact, normal color. Absent: rash <Bruce Silverio M - Last Filed: 03/24/18 10:47> Vital Signs 03/24/18 03/24/18 03/24/18 07:18 07:35 07:54 Temperature 97.9 F Pulse Rate 69 64 68 Respiratory 18 Rate Blood Pressure 138/82 O2 Sat by Pulse 98 Oximetry 03/24/18 03/24/18 03/24/18 09:42 10:15 10:26 Temperature Pulse Rate 68 68 Respiratory 18 Rate Blood Pressure O2 Sat by Pulse Oximetry Medical Decision Making - Lab Data Result diagrams: 03/24/18 07:50 03/24/18 07:50 <Bruce Silverio - Last Filed: 03/24/18 10:47> - Lab Data Result diagrams: 03/24/18 07:50 03/24/18 07:50 <Andrew Barkley - Last Filed: 03/24/18 11:11> - Medical Decision Making 62-year-old female presents emergency from for cough and cold like symptoms. Patient has continued bronchospasm, dyspnea after 3 updrafts. Patient was given Solu-Medrol. Patient be admitted for COPD exacerbation. (Bruce Silverio) Patient reevaluated by myself, Dr. Barkley. Patient resting comfortably in bed. Patient still does have some wheezing. Patient updated on results and plan. Case was discussed in detail with Dr. Bellamy, who will admit for Dr. vela. ( Andrew Barkley) - Lab Data Lab Results 03/24/18 03/24/18 03/24/18 Range/Units 07:50 07:50 07:50 WBC 5.1 (3.8-10.6) k/uL RBC 4.58 (3.80-5.40) m/uL Hgb 13.8 (11.4-16.0) gm/dL Hct 43.2 (34.0-46.0) % MCV 94.3 (80.0-100.0) fL MCH 30.0 (25.0-35.0) pg MCHC 31.9 (31.0-37.0) g/dL RDW 13.7 (11.5-15.5) % Plt Count 263 (150-450) k/uL Neutrophils % 44 % Lymphocytes % 40 % Monocytes % 8 % Eosinophils % 4 % Basophils % 1 % Neutrophils # 2.2 (1.3-7.7) k/uL Lymphocytes # 2.1 (1.0-4.8) k/uL Monocytes # 0.4 (0-1.0) k/uL Eosinophils # 0.2 (0-0.7) k/uL Basophils # 0.1 (0-0.2) k/uL PT (9.0-12.0) sec INR (<1.2) APTT (22.0-30.0) sec Sodium 142 (137-145) mmol/L Potassium 4.5 (3.5-5.1) mmol/L Chloride 107 (98-107) mmol/L Carbon Dioxide 26 (22-30) mmol/L Anion Gap 9 mmol/L BUN 9 (7-17) mg/dL Creatinine 0.74 (0.52-1.04) mg/dL Est GFR (CKD-EPI)AfAm >90 (>60 ml/min/1.73 sqM) Est GFR (CKD-EPI)NonAf 87 (>60 ml/min/1.73 sqM) Glucose 108 H (74-99) mg/dL Plasma Lactic Acid Lorenzo 1.6 (0.7-2.0) mmol/L Calcium 9.7 (8.4-10.2) mg/dL Total Bilirubin 0.8 (0.2-1.3) mg/dL AST 48 H (14-36) U/L ALT 61 H (9-52) U/L Alkaline Phosphatase 56 (38-126) U/L Total Protein 7.0 (6.3-8.2) g/dL Albumin 4.1 (3.5-5.0) g/dL 03/24/18 Range/Units 07:50 WBC (3.8-10.6) k/uL RBC (3.80-5.40) m/uL Hgb (11.4-16.0) gm/dL Hct (34.0-46.0) % MCV (80.0-100.0) fL MCH (25.0-35.0) pg MCHC (31.0-37.0) g/dL RDW (11.5-15.5) % Plt Count (150-450) k/uL Neutrophils % % Lymphocytes % % Monocytes % % Eosinophils % % Basophils % % Neutrophils # (1.3-7.7) k/uL Lymphocytes # (1.0-4.8) k/uL Monocytes # (0-1.0) k/uL Eosinophils # (0-0.7) k/uL Basophils # (0-0.2) k/uL PT 9.9 (9.0-12.0) sec INR 1.0 (<1.2) APTT 22.6 (22.0-30.0) sec Sodium (137-145) mmol/L Potassium (3.5-5.1) mmol/L Chloride (98-107) mmol/L Carbon Dioxide (22-30) mmol/L Anion Gap mmol/L BUN (7-17) mg/dL Creatinine (0.52-1.04) mg/dL Est GFR (CKD-EPI)AfAm (>60 ml/min/1.73 sqM) Est GFR (CKD-EPI)NonAf (>60 ml/min/1.73 sqM) Glucose (74-99) mg/dL Plasma Lactic Acid Lorenzo (0.7-2.0) mmol/L Calcium (8.4-10.2) mg/dL Total Bilirubin (0.2-1.3) mg/dL AST (14-36) U/L ALT (9-52) U/L Alkaline Phosphatase (38-126) U/L Total Protein (6.3-8.2) g/dL Albumin (3.5-5.0) g/dL Disposition <Bruce Silverio - Last Filed: 03/24/18 10:47> <Andrew Barkley - Last Filed: 03/24/18 11:11> Clinical Impression: COPD exacerbation, Dyspnea, Bronchitis Disposition: ADMITTED IP TO THIS HOSP Condition: Fair Referrals: Mariaa Duncan MD [Primary Care Provider] - 1-2 days
[2018-03-24 08:21] LABS: Basophils # (A) 0.1 k/uL (0-0.2); Basophils % (A) 1 %; Eosinophils # (A) 0.2 k/uL (0-0.7); Eosinophils % (A) 4 %; HCT 43.2 % (34.0-46.0); HGB 13.8 gm/dL (11.4-16.0); Lymphocytes # (A) 2.1 k/uL (1.0-4.8); Lymphocytes % (A) 40 %; MCHC 31.9 g/dL (31.0-37.0); MCV 94.3 fL (80.0-100.0); Mean Platelet Volume 6.5; Monocytes # (A) 0.4 k/uL (0-1.0); Monocytes % (A) 8 %; Neutrophils # (A) 2.2 k/uL (1.3-7.7); Neutrophils % (A) 44 %; Platelet Count 263 k/uL (150-450); RBC 4.58 m/uL (3.80-5.40); RDW 13.7 % (11.5-15.5); WBC 5.1 k/uL (3.8-10.6)
[2018-03-24 08:34] LABS: Partial Thromboplastin Time 22.6 sec (22.0-30.0); Prothrombin Time 9.9 sec (9.0-12.0)
[2018-03-24 08:38] LABS: ALT 61 U/L (9-52); AST 48 U/L (14-36); Albumin 4.1 g/dL (3.5-5.0); Alkaline Phosphatase 56 U/L (38-126); Anion Gap 9 mmol/L; Blood Urea Nitrogen 9 mg/dL (7-17); Calcium 9.7 mg/dL (8.4-10.2); Carbon Dioxide 26 mmol/L (22-30); Chloride 107 mmol/L (98-107); Glucose 108 mg/dL (74-99); Potassium 4.5 mmol/L (3.5-5.1); Sodium 142 mmol/L (137-145); Total Bilirubin 0.8 mg/dL (0.2-1.3)
--- NOTE | 2018-03-24 08:59 | XR ---
EXAMINATION TYPE: XR chest 2V DATE OF EXAM: 03/24/2018 COMPARISON: 01/12/2018 TECHNIQUE: PA and lateral views submitted. HISTORY: Cough FINDINGS: The lungs are clear and there is no pneumothorax, pleural effusion, or focal pneumonia. Sclerosis i nvolving the anterior margin the first rib stable. Arthropathy of the shoulders. Hypertrophic and deg enerative change of the spine. Surgical clips in the abdomen. IMPRESSION: 1. No acute process.
--- NOTE | 2018-03-24 09:28 | US ---
EXAMINATION TYPE: US venous doppler duplex LE RT DATE OF EXAM: 03/24/2018 9:25 AM COMPARISON: Bilateral lower extremity venous ultrasound June 09, 2017 CLINICAL HISTORY: Pain. Pain right lower leg for 10 days. Patient on blood thinner for 2 years, histo ry of PE SIDE PERFORMED: right TECHNIQUE: The lower extremity deep venous system is examined utilizing real time linear array sonog emmanuelle with graded compression, doppler sonography and color-flow sonography. VESSELS IMAGED: External Iliac Vein (EIV) Common Femoral Vein Deep Femoral Vein Greater Saphenous Vein * Femoral Vein Popliteal Vein Small Saphenous Vein * Proximal Calf Veins (* superficial vessels) Right Leg: No evidence of DVT as visualized Grayscale, color doppler, spectral doppler imaging performed of the deep veins of the right lower ext remity. There is normal flow, compressibility, vascular waveforms. IMPRESSION: No ultrasound evidence for acute DVT in the right lower extremity.
[2018-03-24] MEDS ORDERED: ALBUTEROL NEBULIZED 2.5 MG/3 ML INHALATION STA (09:50)
[2018-03-24] MEDS ORDERED: ALBUTEROL NEBULIZED 2.5 MG/3 ML INHALATION PRN (10:49)
[2018-03-24] MEDS: IPRATROPIUM-ALBUTEROL 3 ML NEB INHALATION SCH ×3 (12:16→19:19)
[2018-03-24 12:44] VITALS: BMI 45.1
[2018-03-24] MEDS: methylPREDNISolone SOD SUCCI 125 MG/2 ML VIAL IV SCH ×3 (13:12→23:34)
[2018-03-24] MEDS ORDERED: LEVOFLOXACIN 500MG-D5W PMX 500 MG in DEXTROSE/WATER 1 100ML.BAG IVPB STA (14:40)
[2018-03-24] MEDS: RIVAROXABAN 20 MG TAB PO SCH (14:46)
[2018-03-24] MEDS: METOPROLOL TARTRATE 25 MG TAB PO SCH (14:47)
[2018-03-24] MEDS: FUROSEMIDE 20 MG TAB PO SCH (14:47)
[2018-03-24] MEDS: LEVOTHYROXINE 75 MCG TAB PO SCH (14:47)
--- NOTE | 2018-03-24 14:51 | P.HPIM ---
History of Present Illness H&P Date: 03/24/18 Chief Complaint: Cough with shortness of breath This is a 62-year-old female, patient of Dr. Duncan. She has a known past medical history of left leg DVT and PE diagnosed in 2016 and she is anticoagulated with Xarelto. She also has a history of hypothyroidism, COPD and hyperlipidemia. She is a former smoker. Patient reports that she has been having a cough with congestion and shortness of breath for almost a week. She left denies states to travel to [place] on the . And while she was there developed congestion with runny nose also having sweats. She's having a cough that keeps her up at night. The cough is nonproductive. And also worsening shortness of breath. She presented to the emergency room for further evaluation and treatment. Chest x-rays negative for any acute pulmonary process. She started on IV Solu-Medrol and nebulizer treatments. Patient reports that she did take a DuoNeb treatment at home with not much improvement. Patient was concerned about blood clots. She has not missed any doses of her Xarelto. She did complain of right leg tightness in the ER. Doppler was completed and is negative for DVT. She has been having issues with swelling in both legs and was started on Lasix by her family doctor. Denies any history of congestive heart failure. She ws admitted to the hospital for an acute COPD exacerbation and bronchitis. Will place her on Levaquin. She has an ALLERGY to penicillin. Pulmonary service has been consulted. Patient denies any fever or chills. Denies a nausea vomiting. Denies any chest pain. Review of Systems Please refer to HPI otherwise unremarkable Past Medical History Past Medical History: Chest Pain / Angina, Deep Vein Thrombosis (DVT), Hyperlipidemia, Pneumonia, Pulmonary Embolus (PE), Thyroid Disorder Additional Past Medical History / Comment(s): PAPITATIONS, PE with residual clots, hypothyroid, Shingles 2018 History of Any Multi-Drug Resistant Organisms: None Reported Past Surgical History: Section, Cholecystectomy, Hernia Repair, Orthopedic Surgery, Tonsillectomy Additional Past Surgical History / Comment(s): ONE DENTAL IMPLANT, COLONOSCOPY, HEMORRHOIDECTOMY,PILONIDAL CYST REMOVED AGE 17, CERVICAL BX-PRE CANCEROUS CELLS- HAD PROCEDURE , HAD BROKEN IUD REMOVED AND PT STATED THEY WENT IN LIKE HAVING A TO REMOVED BROKEN PEICES,DOMINGUEZ KNEE REPLACEMENTS Past Anesthesia/Blood Transfusion Reactions: No Reported Reaction Past Psychological History: No Psychological Hx Reported Smoking Status: Former smoker Past Alcohol Use History: Occasional Past Drug Use History: None Reported - Past Family History Father Family Medical History: Congestive Heart Failure (CHF) Additional Family Medical History / Comment(s): AGE 78 Mother Additional Family Medical History / Comment(s): PARKINSONS- AGE 74. AN AUNT HAD BRAIN AND ABD ANUERYSM. Medications and Allergies Home Medications Medication Instructions Recorded Confirmed Type Levothyroxine Sodium [Synthroid] 150 mcg PO DAILY 08/09/16 03/24/18 History Atorvastatin [Lipitor] 40 mg PO HS 06/07/17 03/24/18 History Furosemide [Lasix] 20 mg PO DAILY 06/07/17 03/24/18 History Metoprolol Tartrate 25 mg PO DAILY 06/07/17 03/24/18 History Cholecalciferol [Vitamin D3] 3,000 unit PO DAILY 01/12/18 03/24/18 History Rivaroxaban [Xarelto] 20 mg PO DAILY 01/12/18 03/24/18 History Allergies Allergy/AdvReac Type Severity Reaction Status Date / Time Penicillins Allergy Swelling Verified 03/24/18 07:32 Physical Exam Vitals: Vital Signs Temp Pulse Pulse Resp BP BP Pulse Ox 03/24/18 12:20 98.4 F 77 16 146/79 96 03/24/18 11:40 98 F 78 20 134/63 98 03/24/18 10:26 68 03/24/18 10:15 68 03/24/18 09:42 18 03/24/18 07:54 68 03/24/18 07:35 64 03/24/18 07:18 97.9 F 69 18 138/82 98 Intake and Output 03/23/18 03/24/18 03/24/18 22:59 06:59 14:59 Other: # Voids 1 Weight 127 kg Head normocephalic Neck supple Lungs few coarse breath sounds noted anteriorly. Mild expiratory wheezing noted. No crackles Heart regular rate and rhythm S1-S2, no rub or gallop Abdomen is soft nontender nondistended positive bowel sounds no hepatosplenomegaly. Obesity Extremities no edema Neuro alert and orientated to 3 Results CBC & Chem 7: 03/24/18 07:50 03/24/18 07:50 Labs: Abnormal Lab Results - Last 24 Hours (Table) 03/24/18 Range/Units 07:50 Glucose 108 H (74-99) mg/dL AST 48 H (14-36) U/L ALT 61 H (9-52) U/L Thrombosis Risk Factor Assmnt - Choose All That Apply Each Factor Represents 1 point: Abnormal pulmonary function (COPD), Obesity ( BMI >25), Swollen legs (current) Each Risk Factor Represents 2 Points: Age 61-74 years Each Risk Factor Represents 3 Points: Family history of DVT/PE, History of DVT/ PE Thrombosis Risk Factor Assessment Total Risk Factor Score: 11 Thrombosis Risk Factor Assessment Level: High Risk Assessment and Plan Assessment: 1. Shortness of breath with cough and congestion. Possibly related to COPD exacerbation and bronchitis. However, concerns for a possible PE due to her recent traveling to [place]. Check d-dimer. Continue with her Xarelto. Pulmonary service has been consulted 2. Acute COPD exacerbation: Continue DuoNeb updrafts and IV Solu-Medrol. 3. Acute tracheobronchitis: No pneumonia on chest x-ray. Patient started on Levaquin. She has a ALLERGY to penicillin. Will add Mucinex also for her congestion 4. History of PE and DVT diagnosed in 2016. Continue Xarelto. Doppler of right leg and this admission negative for DVT 5. Hyperlipidemia statin on hold due to mildly elevated LFTs 6. Mildly elevated LFTs: Repeat LFTs in a.m. Hold statin 7. Hypothyroidism continue Synthroid 8. Oral candidiasis start nystatin swish and swallow GI prophylaxis Pepcid and DVT prophylaxis Xarelto Time with Patient: Greater than 30 (Greater than 60% of the total time spent in counseling and coordination of care.I performed an examination of the patient and discussed their management with the physician Lead Medical Technologist. I have reviewed the Physician Lead Medical Technologist's notes and agree with the documented findings and plan of care)
[2018-03-24] MEDS: NYSTATIN 100,000 UNIT/ML SUSP 500,000 UNIT/5 ML CUP PO SCH ×3 (15:33→21:42)
[2018-03-24 17:19] LABS: Glucose,Whole Blood 207 mg/dL (75-99)
[2018-03-24] MEDS: INSULIN ASPART 100 UNIT/ML 1 ML 10 ML VIAL SQ SCH ×2 (17:51→21:42)
[2018-03-24] MEDS: guaiFENesin-Coden 100-10MG/5ML 10 ML CUP PO PRN (17:52)
[2018-03-24 20:51] LABS: Glucose,Whole Blood 162 mg/dL (75-99)
[2018-03-24] MEDS ORDERED: ATORVASTATIN 40 MG TAB PO SCH (21:00)
[2018-03-24] MEDS: guaiFENesin 600 MG TABLET.ER PO SCH (21:42)
[2018-03-25] MEDS: guaiFENesin-Coden 100-10MG/5ML 10 ML CUP PO PRN ×3 (03:01→22:35)
[2018-03-25] MEDS: methylPREDNISolone SOD SUCCI 125 MG/2 ML VIAL IV SCH ×3 (05:50→17:42)
[2018-03-25] MEDS: LEVOTHYROXINE 75 MCG TAB PO SCH (05:50)
[2018-03-25 07:18] LABS: Glucose,Whole Blood 140 mg/dL (75-99)
[2018-03-25] MEDS: IPRATROPIUM-ALBUTEROL 3 ML NEB INHALATION SCH ×4 (07:46→19:22)
[2018-03-25] MEDS: INSULIN ASPART 100 UNIT/ML 1 ML 10 ML VIAL SQ SCH ×4 (08:10→22:35)
[2018-03-25] MEDS: FUROSEMIDE 20 MG TAB PO SCH (08:11)
[2018-03-25] MEDS: FAMOTIDINE 20 MG TAB PO SCH (08:11)
[2018-03-25] MEDS: guaiFENesin 600 MG TABLET.ER PO SCH ×2 (08:11→22:35)
[2018-03-25] MEDS: METOPROLOL TARTRATE 25 MG TAB PO SCH (08:11)
[2018-03-25] MEDS: NYSTATIN 100,000 UNIT/ML SUSP 500,000 UNIT/5 ML CUP PO SCH ×4 (08:12→22:35)
[2018-03-25] MEDS: RIVAROXABAN 20 MG TAB PO SCH (08:12)
[2018-03-25 09:10] LABS: Basophils % (A) 0 %; Eosinophils % (A) 0 %; HCT 42.4 % (34.0-46.0); HGB 13.8 gm/dL (11.4-16.0); Hypochromasia Slight; Lymphocytes # (A) 1.3 k/uL (1.0-4.8); Lymphocytes % (A) 15 %; MCHC 32.5 g/dL (31.0-37.0); MCV 95.3 fL (80.0-100.0); Mean Platelet Volume 6.9; Monocytes # (A) 0.3 k/uL (0-1.0); Monocytes % (A) 3 %; Neutrophils # (A) 7.2 k/uL (1.3-7.7); Neutrophils % (A) 81 %; Platelet Count 273 k/uL (150-450); RBC 4.45 m/uL (3.80-5.40); RDW 13.6 % (11.5-15.5); WBC 8.9 k/uL (3.8-10.6)
[2018-03-25 09:32] LABS: ALT 48 U/L (9-52); AST 30 U/L (14-36); Albumin 4.1 g/dL (3.5-5.0); Alkaline Phosphatase 59 U/L (38-126); Anion Gap 11 mmol/L; Blood Urea Nitrogen 15 mg/dL (7-17); Calcium 9.9 mg/dL (8.4-10.2); Carbon Dioxide 20 mmol/L (22-30); Chloride 109 mmol/L (98-107); Glucose 153 mg/dL (74-99); Potassium 4.5 mmol/L (3.5-5.1); Sodium 140 mmol/L (137-145); Total Bilirubin 0.8 mg/dL (0.2-1.3); Total Protein 7.1 g/dL (6.3-8.2)
[2018-03-25] MEDS: CHOLECALCIFEROL 1,000 UNIT TAB PO SCH (11:34)
--- NOTE | 2018-03-25 11:43 | P.CNPUL ---
History of Present Illness Consult date: 03/25/18 Reason for consult: dyspnea, cough, pulmonary embolism Chief complaint: Cough shortness of breath upper respiratory tract infection History of present illness: Pulmonary consult dated 03/25/2018 62-year-old female who presents to the emergency department with complaints of cough congestion shortness of breath. She apparently was recently in [place]. She apparently got sick there. It started off as an upper respiratory tract infection and this settled into her chest. She had chest congestion coughing wheezing and shortness of breath. She does have a history of DVT and previous pulmonary embolism. She is on lifelong blood thinner. She is feeling better today. She denies any chest pain or chest discomfort. There was no fever or chills. No nausea vomiting or diarrhea. She does not have a history of underlying intrinsic pulmonary disease. She was last seen by me in July 2017. Pulmonary function testing was normal. She is feeling better today and probably could be discharged home later today or tomorrow. Her likely diagnosis is acute bronchitis with reactive bronchospasm and bronchial inflammation. Her chest x-ray did not show an acute process. In addition, she did have a Doppler of the right lower extremity which was negative. She does have a history of angina, hyperlipidemia, pneumonia, pulmonary embolism, hypothyroidism, hyperlipidemia, and a DVT. Review of Systems A 14 point review of systems is positive for chest congestion coughing wheezing phlegm production and shortness of breath. She is feeling better today. She became ill while she was visiting in [place]. Past Medical History Past Medical History: Chest Pain / Angina, Deep Vein Thrombosis (DVT), Hyperlipidemia, Pneumonia, Pulmonary Embolus (PE), Thyroid Disorder Additional Past Medical History / Comment(s): PAPITATIONS, PE with residual clots, hypothyroid, Shingles 2017 History of Any Multi-Drug Resistant Organisms: None Reported Past Surgical History: Section, Cholecystectomy, Hernia Repair, Orthopedic Surgery, Tonsillectomy Additional Past Surgical History / Comment(s): ONE DENTAL IMPLANT, COLONOSCOPY, HEMORRHOIDECTOMY,PILONIDAL CYST REMOVED AGE 17, CERVICAL BX-PRE CANCEROUS CELLS- HAD PROCEDURE , HAD BROKEN IUD REMOVED AND PT STATED THEY WENT IN LIKE HAVING A TO REMOVED BROKEN PEICES,DOMINGUEZ KNEE REPLACEMENTS Past Anesthesia/Blood Transfusion Reactions: No Reported Reaction Past Psychological History: No Psychological Hx Reported Smoking Status: Former smoker Past Alcohol Use History: Occasional Past Drug Use History: None Reported - Past Family History Father Family Medical History: Congestive Heart Failure (CHF) Additional Family Medical History / Comment(s): AGE 78 Mother Additional Family Medical History / Comment(s): PARKINSONS- AGE 74. AN AUNT HAD BRAIN AND ABD ANUERYSM. Medications and Allergies Home Medications Medication Instructions Recorded Confirmed Type Levothyroxine Sodium [Synthroid] 150 mcg PO DAILY 08/09/16 03/24/18 History Atorvastatin [Lipitor] 40 mg PO HS 06/07/17 03/24/18 History Furosemide [Lasix] 20 mg PO DAILY 06/07/17 03/24/18 History Metoprolol Tartrate 25 mg PO DAILY 06/07/17 03/24/18 History Cholecalciferol [Vitamin D3] 3,000 unit PO DAILY 01/12/18 03/24/18 History Rivaroxaban [Xarelto] 20 mg PO DAILY 01/12/18 03/24/18 History Allergies Allergy/AdvReac Type Severity Reaction Status Date / Time Penicillins Allergy Swelling Verified 03/24/18 07:32 Physical Exam Osteopathic Statement: *. No significant issues noted on an osteopathic structural exam other than those noted in the History and Physical/Consult. Vitals: Vital Signs Temp Pulse Pulse Resp BP BP Pulse Ox 03/25/18 11:32 70 03/25/18 11:20 72 03/25/18 07:59 72 03/25/18 07:46 70 94 L 03/25/18 06:36 98.4 F 67 18 109/66 96 03/24/18 23:00 98.5 F 75 18 116/67 98 03/24/18 19:39 78 03/24/18 19:19 78 03/24/18 15:47 78 03/24/18 15:36 78 03/24/18 15:00 98.4 F 93 20 135/72 96 03/24/18 12:20 98.4 F 77 16 146/79 96 03/24/18 11:40 98 F 78 20 134/63 98 Intake and Output 03/24/18 03/25/18 03/25/18 22:59 06:59 14:59 Other: # Voids 1 1 No acute distress, oriented 3. Not requiring any supplemental oxygen. HEENT examination is grossly unremarkable. Mucous membranes are moist. No oral lesions. Neck supple. Full range of motion. No adenopathy thyromegaly or neck vein distention. Cardiovascular examination reveals regular rhythm rate. S1-S2 normal. No S3 or S4. No discernible murmur noted. Heart sounds are distant heart rate is 80 bpm. Lungs reveal mild bilateral expiratory rhonchi. Slight prolongation on forced maneuver. No crackles. Mild expiratory wheezes. Breath sounds equal bilaterally. Abdomen soft bowel sounds are heard. No masses or tenderness. Extremities are intact. No cyanosis or clubbing. Mild lower extremity edema. Skin is without rash or lesion. Neurologic examination is brief but nonfocal. Results - Laboratory Findings CBC and BMP: 03/25/18 08:20 03/25/18 08:20 PT/INR, D-dimer PT 9.9 sec (9.0-12.0) 03/24/18 07:50 INR 1.0 (<1.2) 03/24/18 07:50 D-Dimer 0.35 mg/L FEU (<0.60) 03/24/18 15:12 Abnormal lab findings: Abnormal Labs 03/24/18 03/24/18 03/24/18 07:50 16:58 20:50 Chloride Carbon Dioxide Glucose 108 H POC Glucose (mg/dL) 207 H 162 H AST 48 H ALT 61 H 03/25/18 03/25/18 07:15 08:20 Chloride 109 H Carbon Dioxide 20 L Glucose 153 H POC Glucose (mg/dL) 140 H AST ALT - Diagnostic Findings Chest x-ray: report reviewed, image reviewed U/S of Legs: report reviewed (Chest x-ray labs and medications are reviewed.), image reviewed Assessment and Plan Assessment: Assessment Acute bronchitis with reactive bronchospasm and bronchial inflammation Recent acute upper respiratory tract infection History of DVT and pulmonary embolism, currently on lifelong anticoagulation History of hyperlipidemia History of pneumonia History of hypothyroidism Obesity No history of intrinsic pulmonary disease Plan: Plan dated 03/25/2018 The patient is currently on updrafts with all be a role. She is also receiving Atrovent or ipratropium bromide. She is currently on a oral antibiotic. In addition, she is receiving some steroids. I'm sure that one day or so, she'll be ready for discharge. His acute bronchitis with reactive bronchospasm and bronchial inflammation. The patient does not have any intrinsic pulmonary disease. She does have a history of recurrent pulmonary embolism for which she is on lifelong anticoagulation. Additional recommendations and suggestions are forthcoming. Prognosis is guarded. CBC is normal. Sodium potassium are normal. Chloride 109 CO2 20 anion gap is normal. BUN and creatinine were 15 and 0.78. Time with Patient: Greater than 30
[2018-03-25 12:02] LABS: Glucose,Whole Blood 235 mg/dL (75-99)
--- NOTE | 2018-03-25 12:23 | P.PN ---
Subjective Progress Note Date: 03/25/18 This is a 62-year-old female, patient of Dr. Duncan. She has a known past medical history of left leg DVT and PE diagnosed in 2016 and she is anticoagulated with Xarelto. She also has a history of hypothyroidism, COPD and hyperlipidemia. She is a former smoker. Patient reports that she has been having a cough with congestion and shortness of breath for almost a week. She left denies states to travel to [place] on the . And while she was there developed congestion with runny nose also having sweats. She's having a cough that keeps her up at night. The cough is nonproductive. And also worsening shortness of breath. She presented to the emergency room for further evaluation and treatment. Chest x-rays negative for any acute pulmonary process. She started on IV Solu-Medrol and nebulizer treatments. Patient reports that she did take a DuoNeb treatment at home with not much improvement. Patient was concerned about blood clots. She has not missed any doses of her Xarelto. She did complain of right leg tightness in the ER. Doppler was completed and is negative for DVT. She has been having issues with swelling in both legs and was started on Lasix by her family doctor. Denies any history of congestive heart failure. She ws admitted to the hospital for an acute COPD exacerbation and bronchitis. Will place her on Levaquin. She has an ALLERGY to penicillin. Pulmonary service has been consulted. Patient denies any fever or chills. Denies a nausea vomiting. Denies any chest pain. On 03/25/2018 patient states she is feeling slightly improved. Patient remains on IV Solu-Medrol and Levaquin IV antibiotic. Patient denies chest pain. Patient states shortness of breath is improving. Patient is having productive cough. Patient denies nausea vomiting or diarrhea. Patient denies any urinary burning or frequency. Objective - Vital Signs Vital signs: Vital Signs Temp 98.4 F 03/25/18 06:36 Pulse 70 03/25/18 11:32 Resp 18 03/25/18 06:36 BP 109/66 03/25/18 06:36 Pulse Ox 94 L 03/25/18 07:46 Intake & Output 03/24/18 03/25/18 03/25/18 18:59 06:59 18:59 Weight 127 kg Other: # Voids 1 1 - Exam Head normocephalic Neck supple Lungs few coarse breath sounds noted anteriorly.. Mild expiratory wheezing noted. No crackles Heart regular rate and rhythm S1-S2, no rub or gallop Abdomen is soft nontender nondistended positive bowel sounds no hepatosplenomegaly Extremities no edema Neuro alert and orientated to 3 - Labs CBC & Chem 7: 03/25/18 08:20 03/25/18 08:20 Labs: Abnormal Lab Results - Last 24 Hours (Table) 03/24/18 03/24/18 03/25/18 Range/Units 16:58 20:50 07:15 Chloride (98-107) mmol/L Carbon Dioxide (22-30) mmol/L Glucose (74-99) mg/dL POC Glucose (mg/dL) 207 H 162 H 140 H (75-99) mg/dL 03/25/18 03/25/18 Range/Units 08:20 11:56 Chloride 109 H (98-107) mmol/L Carbon Dioxide 20 L (22-30) mmol/L Glucose 153 H (74-99) mg/dL POC Glucose (mg/dL) 235 H (75-99) mg/dL Microbiology - Last 24 Hours (Table) 03/24/18 07:50 Blood Culture - Preliminary Blood No Growth after 24 hours Assessment and Plan Assessment: 1. Shortness of breath with cough and congestion. Possibly related to COPD exacerbation and bronchitis. However, concerns for a possible PE due to her recent traveling to [place]. D-dimer negative. Continue with her Xarelto. Per pulmonary continue with updrafts, oral antibiotic and steroids at this time. 2. Acute COPD exacerbation: Continue DuoNeb updrafts and IV Solu-Medrol. 3. Acute tracheobronchitis: No pneumonia on chest x-ray. Patient started on Levaquin. She has a ALLERGY to penicillin. Will add Mucinex also for her congestion 4. History of PE and DVT diagnosed in 2016. Continue Xarelto. Doppler of right leg and this admission negative for DVT 5. Hyperlipidemia statin on hold due to mildly elevated LFTs 6. Mildly elevated LFTs: Repeat LFTs in a.m. Hold statin 7. Hypothyroidism continue Synthroid 8. Oral candidiasis start nystatin swish and swallow GI prophylaxis Pepcid and DVT prophylaxis Xarelto I performed an examination of the patient and discussed their management with the Nurse Practitioner. I have reviewed the Nurse Practitioner's notes and agree with the documented findings and plan of care
[2018-03-25] MEDS: LEVOFLOXACIN 500 MG TAB PO SCH (13:48)
[2018-03-25 17:45] LABS: Glucose,Whole Blood 154 mg/dL (75-99)
[2018-03-25 22:19] LABS: Glucose,Whole Blood 161 mg/dL (75-99)
[2018-03-26] MEDS: methylPREDNISolone SOD SUCCI 125 MG/2 ML VIAL IV SCH ×4 (00:09→17:34)
[2018-03-26] MEDS: LEVOTHYROXINE 75 MCG TAB PO SCH (06:13)
[2018-03-26] MEDS: IPRATROPIUM-ALBUTEROL 3 ML NEB INHALATION SCH ×4 (07:17→19:24)
[2018-03-26 07:55] LABS: Glucose,Whole Blood 146 mg/dL (75-99)
[2018-03-26] MEDS: NYSTATIN 100,000 UNIT/ML SUSP 500,000 UNIT/5 ML CUP PO SCH ×4 (08:12→21:47)
[2018-03-26] MEDS: METOPROLOL TARTRATE 25 MG TAB PO SCH (08:12)
[2018-03-26] MEDS: INSULIN ASPART 100 UNIT/ML 1 ML 10 ML VIAL SQ SCH ×4 (08:12→21:46)
[2018-03-26] MEDS: RIVAROXABAN 20 MG TAB PO SCH (08:12)
[2018-03-26] MEDS: CHOLECALCIFEROL 1,000 UNIT TAB PO SCH (08:12)
[2018-03-26] MEDS: FAMOTIDINE 20 MG TAB PO SCH (08:12)
[2018-03-26] MEDS: FUROSEMIDE 20 MG TAB PO SCH (08:12)
[2018-03-26] MEDS: guaiFENesin 600 MG TABLET.ER PO SCH ×2 (08:12→20:19)
[2018-03-26 08:38] LABS: Basophils % (A) 0 %; Eosinophils % (A) 0 %; HCT 41.5 % (34.0-46.0); HGB 12.9 gm/dL (11.4-16.0); Lymphocytes # (A) 1.2 k/uL (1.0-4.8); Lymphocytes % (A) 10 %; MCH 29.6 pg (25.0-35.0); MCV 95.4 fL (80.0-100.0); Mean Platelet Volume 6.7; Monocytes # (A) 0.5 k/uL (0-1.0); Monocytes % (A) 4 %; Neutrophils # (A) 10.1 k/uL (1.3-7.7); Neutrophils % (A) 84 %; Platelet Count 279 k/uL (150-450); RBC 4.35 m/uL (3.80-5.40); RDW 13.6 % (11.5-15.5); WBC 11.9 k/uL (3.8-10.6)
[2018-03-26 09:04] LABS: ALT 43 U/L (9-52); AST 24 U/L (14-36); Albumin 3.8 g/dL (3.5-5.0); Alkaline Phosphatase 52 U/L (38-126); Anion Gap 8 mmol/L; Blood Urea Nitrogen 21 mg/dL (7-17); Calcium 9.5 mg/dL (8.4-10.2); Carbon Dioxide 24 mmol/L (22-30); Chloride 108 mmol/L (98-107); Glucose 151 mg/dL (74-99); Potassium 4.8 mmol/L (3.5-5.1); Sodium 140 mmol/L (137-145); Total Bilirubin 0.6 mg/dL (0.2-1.3); Total Protein 6.4 g/dL (6.3-8.2)
--- NOTE | 2018-03-26 11:10 | P.PN ---
Subjective Progress Note Date: 03/26/18 Principal diagnosis: Acute bronchitis with reactive bronchospasm and bronchial inflammation. Pulmonary consult dated 03/25/2018 62-year-old female who presents to the emergency department with complaints of cough congestion shortness of breath. She apparently was recently in [place]. She apparently got sick there. It started off as an upper respiratory tract infection and this settled into her chest. She had chest congestion coughing wheezing and shortness of breath. She does have a history of DVT and previous pulmonary embolism. She is on lifelong blood thinner. She is feeling better today. She denies any chest pain or chest discomfort. There was no fever or chills. No nausea vomiting or diarrhea. She does not have a history of underlying intrinsic pulmonary disease. She was last seen by me in July 2017. Pulmonary function testing was normal. She is feeling better today and probably could be discharged home later today or tomorrow. Her likely diagnosis is acute bronchitis with reactive bronchospasm and bronchial inflammation. Her chest x-ray did not show an acute process. In addition, she did have a Doppler of the right lower extremity which was negative. She does have a history of angina, hyperlipidemia, pneumonia, pulmonary embolism, hypothyroidism, hyperlipidemia, and a DVT. On 03/26/2018 patient seen in follow-up medical surgical floor. Doing much better today, no shortness of breath, coughing less. Lung sounds are positive for a few residual wheezes, but overall patient is clinically improved. Afebrile, vital signs are stable. He has been treated with IV steroids, nebulized bronchodilators, and antibiotics, and has responded well to treatments. Requesting to go home today. Objective - Vital Signs Vital signs: Vital Signs Temp 98.9 F 03/26/18 07:00 Pulse 76 03/26/18 07:27 Resp 16 03/26/18 07:00 BP 119/58 03/26/18 07:00 Pulse Ox 93 L 03/26/18 07:00 Intake & Output 03/25/18 03/26/18 03/26/18 18:59 06:59 18:59 Other: # Voids 2 2 - Exam GENERAL EXAM: Alert, pleasant, 62-year-old white female comfortable in no apparent distress. HEAD: Normocephalic/atraumatic. EYES: Normal reaction of pupils, equal size. Conjunctiva pink, sclera white. NOSE: Clear with pink turbinates. THROAT: No erythema or exudates. NECK: No masses, no JVD, no thyroid enlargement, no adenopathy. CHEST: No chest wall deformity. Symmetrical expansion. LUNGS: Equal air entry with no crackles, wheeze, rhonchi or dullness. CVS: Regular rate and rhythm, normal S1 and S2, no gallops, no murmurs, no rubs ABDOMEN: Soft, nontender. No hepatosplenomegaly, normal bowel sounds, no guarding or rigidity. EXTREMITIES: No clubbing, no edema, no cyanosis, 2+ pulses and upper and lower extremities. MUSCULOSKELETAL: Muscle strength and tone normal. SPINE: No scoliosis or deformity SKIN: No rashes CENTRAL NERVOUS SYSTEM: Alert and oriented -3. No focal deficits, tone is normal in all 4 extremities. PSYCHIATRIC: Alert and oriented -3. Appropriate affect. Intact judgment and insight. - Labs CBC & Chem 7: 03/26/18 07:55 03/26/18 07:55 Labs: Abnormal Lab Results - Last 24 Hours (Table) 03/25/18 03/25/18 03/25/18 Range/Units 11:56 17:05 22:15 WBC (3.8-10.6) k/uL Neutrophils # (1.3-7.7) k/uL Chloride (98-107) mmol/L BUN (7-17) mg/dL Glucose (74-99) mg/dL POC Glucose (mg/dL) 235 H 154 H 161 H (75-99) mg/dL 03/26/18 03/26/18 03/26/18 Range/Units 07:54 07:55 07:55 WBC 11.9 H (3.8-10.6) k/uL Neutrophils # 10.1 H (1.3-7.7) k/uL Chloride 108 H (98-107) mmol/L BUN 21 H (7-17) mg/dL Glucose 151 H (74-99) mg/dL POC Glucose (mg/dL) 146 H (75-99) mg/dL Microbiology - Last 24 Hours (Table) 03/24/18 07:50 Blood Culture - Preliminary Blood No Growth after 48 hours Assessment and Plan Plan: Acute bronchitis with reactive bronchospasm and bronchial inflammation Recent acute upper respiratory tract infection History of DVT and pulmonary embolism, currently on lifelong anticoagulation History of hyperlipidemia History of pneumonia History of hypothyroidism Obesity No history of intrinsic pulmonary disease Plan: Patient is doing well, continues to improve, no acute issues overnight, breathing easier today. Afebrile. From pulmonary perspective patient can be discharged home today, on the short course of oral antibiotics, penicillin taper , and DuoNeb nebulized treatments. Follow-up with Dr. Young in the office in one week I performed a history & physical examination of the patient and discussed their management with my nurse practitioner, Bijal Alvares. I reviewed the nurse practitioner's note and agree with the documented findings and plan of care. Lung sounds are positive for a few wheezes. The findings and the impression was discussed with the patient. I attest to the documentation by the nurse practitioner. Time with Patient: Less than 30
[2018-03-26 11:44] LABS: Glucose,Whole Blood 160 mg/dL (75-99)
--- NOTE | 2018-03-26 13:21 | P.PN ---
Subjective Progress Note Date: 03/26/18 This is a 62-year-old female, patient of Dr. Duncan. She has a known past medical history of left leg DVT and PE diagnosed in 2016 and she is anticoagulated with Xarelto. She also has a history of hypothyroidism, COPD and hyperlipidemia. She is a former smoker. Patient reports that she has been having a cough with congestion and shortness of breath for almost a week. She left denies states to travel to [place] on the . And while she was there developed congestion with runny nose also having sweats. She's having a cough that keeps her up at night. The cough is nonproductive. And also worsening shortness of breath. She presented to the emergency room for further evaluation and treatment. Chest x-rays negative for any acute pulmonary process. She started on IV Solu-Medrol and nebulizer treatments. Patient reports that she did take a DuoNeb treatment at home with not much improvement. Patient was concerned about blood clots. She has not missed any doses of her Xarelto. She did complain of right leg tightness in the ER. Doppler was completed and is negative for DVT. She has been having issues with swelling in both legs and was started on Lasix by her family doctor. Denies any history of congestive heart failure. She ws admitted to the hospital for an acute COPD exacerbation and bronchitis. Will place her on Levaquin. She has an ALLERGY to penicillin. Pulmonary service has been consulted. Patient denies any fever or chills. Denies a nausea vomiting. Denies any chest pain. On 03/25/2018 patient states she is feeling slightly improved. Patient remains on IV Solu-Medrol and Levaquin IV antibiotic. Patient denies chest pain. Patient states shortness of breath is improving. Patient is having productive cough. Patient denies nausea vomiting or diarrhea. Patient denies any urinary burning or frequency. 03/26/2018 patient still reporting shortness of breath and cough. She is feeling better since admission. She does not feel quite ready for discharge yet. Discussed with nursing staff will try to wean patient off of oxygen have her up and ambulating. Patient denies any chest pain, nausea vomiting, bowel movement changes or urinary symptoms. Objective - Vital Signs Vital signs: Vital Signs Temp 98.9 F 03/26/18 07:00 Pulse 78 09/27/18 12:41 Resp 16 03/26/18 07:00 BP 119/58 03/26/18 07:00 Pulse Ox 93 L 03/26/18 07:00 Intake & Output 03/25/18 03/26/18 03/26/18 18:59 06:59 18:59 Other: # Voids 2 2 - Exam Head normocephalic Neck supple Lungs few faint coarse breath sounds noted bilaterally Heart regular rate and rhythm S1-S2, no rub or gallop Abdomen is soft nontender nondistended positive bowel sounds no hepatosplenomegaly Extremities no edema Neuro alert and orientated to 3 - Labs CBC & Chem 7: 03/26/18 07:55 03/26/18 07:55 Labs: Abnormal Lab Results - Last 24 Hours (Table) 03/25/18 03/25/18 03/26/18 Range/Units 17:05 22:15 07:54 WBC (3.8-10.6) k/uL Neutrophils # (1.3-7.7) k/uL Chloride (98-107) mmol/L BUN (7-17) mg/dL Glucose (74-99) mg/dL POC Glucose (mg/dL) 154 H 161 H 146 H (75-99) mg/dL 03/26/18 03/26/18 03/26/18 Range/Units 07:55 07:55 11:42 WBC 11.9 H (3.8-10.6) k/uL Neutrophils # 10.1 H (1.3-7.7) k/uL Chloride 108 H (98-107) mmol/L BUN 21 H (7-17) mg/dL Glucose 151 H (74-99) mg/dL POC Glucose (mg/dL) 160 H (75-99) mg/dL Microbiology - Last 24 Hours (Table) 03/24/18 07:50 Blood Culture - Preliminary Blood No Growth after 48 hours Assessment and Plan Assessment: 1. Shortness of breath with cough and congestion. Possibly related to COPD exacerbation and bronchitis. D-dimer negative 2. Acute COPD exacerbation: Continue DuoNeb updrafts and IV Solu-Medrol. 3. Acute tracheobronchitis: No pneumonia on chest x-ray. Patient started on Levaquin. She has a ALLERGY to penicillin. Will add Mucinex also for her congestion 4. History of PE and DVT diagnosed in 2016. Continue Xarelto. Doppler of right leg and this admission negative for DVT 5. Hyperlipidemia statin on hold due to mildly elevated LFTs 6. Mildly elevated LFTs: Repeat LFTs in a.m. Hold statin 7. Hypothyroidism continue Synthroid 8. Oral candidiasis start nystatin swish and swallow GI prophylaxis Pepcid and DVT prophylaxis Xarelto Anticipate discharge home tomorrow. We'll try to wean patient off. 2. Increase activity. Consult physical therapy I performed an examination of the patient and discussed their management with the physician Non Profit Job Titles. I have reviewed the Physician Non Profit Job Titles's notes and agree with the documented findings and plan of care
[2018-03-26] MEDS: LEVOFLOXACIN 500 MG TAB PO SCH (16:51)
[2018-03-26 17:21] LABS: Glucose,Whole Blood 170 mg/dL (75-99)
[2018-03-26 20:49] LABS: Glucose,Whole Blood 176 mg/dL (75-99)
[2018-03-26] MEDS: guaiFENesin-Coden 100-10MG/5ML 10 ML CUP PO PRN (21:49)
[2018-03-26 22:56] VITALS: RESP 16
[2018-03-27] MEDS: methylPREDNISolone SOD SUCCI 125 MG/2 ML VIAL IV SCH ×3 (00:26→13:14)
[2018-03-27] MEDS: LEVOTHYROXINE 75 MCG TAB PO SCH (06:19)
[2018-03-27 06:38] VITALS: BP 115/55; TEMP 97.8
[2018-03-27] MEDS: IPRATROPIUM-ALBUTEROL 3 ML NEB INHALATION SCH ×2 (06:55→10:47)
[2018-03-27 07:37] LABS: Glucose,Whole Blood 144 mg/dL (75-99)
[2018-03-27] MEDS: FUROSEMIDE 20 MG TAB PO SCH (07:51)
[2018-03-27] MEDS: NYSTATIN 100,000 UNIT/ML SUSP 500,000 UNIT/5 ML CUP PO SCH ×2 (07:51→13:14)
[2018-03-27] MEDS: METOPROLOL TARTRATE 25 MG TAB PO SCH (07:51)
[2018-03-27] MEDS: CHOLECALCIFEROL 1,000 UNIT TAB PO SCH (07:51)
[2018-03-27] MEDS: guaiFENesin 600 MG TABLET.ER PO SCH (07:52)
[2018-03-27] MEDS: RIVAROXABAN 20 MG TAB PO SCH (07:52)
[2018-03-27] MEDS: INSULIN ASPART 100 UNIT/ML 1 ML 10 ML VIAL SQ SCH ×2 (07:52→13:14)
[2018-03-27] MEDS: FAMOTIDINE 20 MG TAB PO SCH (07:52)
[2018-03-27 09:19] LABS: Basophils % (A) 0 %; Eosinophils % (A) 0 %; HCT 39.6 % (34.0-46.0); HGB 12.6 gm/dL (11.4-16.0); Lymphocytes # (A) 0.5 k/uL (1.0-4.8); Lymphocytes % (A) 5 %; MCH 30.3 pg (25.0-35.0); MCHC 31.9 g/dL (31.0-37.0); MCV 94.7 fL (80.0-100.0); Mean Platelet Volume 6.6; Monocytes # (A) 0.4 k/uL (0-1.0); Monocytes % (A) 4 %; Neutrophils # (A) 8.5 k/uL (1.3-7.7); Neutrophils % (A) 90 %; Platelet Count 271 k/uL (150-450); RBC 4.18 m/uL (3.80-5.40); RDW 13.6 % (11.5-15.5); WBC 9.5 k/uL (3.8-10.6)
[2018-03-27 09:35] LABS: ALT 47 U/L (9-52); AST 29 U/L (14-36); Albumin 3.6 g/dL (3.5-5.0); Alkaline Phosphatase 56 U/L (38-126); Anion Gap 10 mmol/L; Blood Urea Nitrogen 23 mg/dL (7-17); Calcium 9.2 mg/dL (8.4-10.2); Carbon Dioxide 23 mmol/L (22-30); Chloride 107 mmol/L (98-107); Glucose 221 mg/dL (74-99); Potassium 4.3 mmol/L (3.5-5.1); Sodium 140 mmol/L (137-145); Total Bilirubin 0.6 mg/dL (0.2-1.3); Total Protein 6.2 g/dL (6.3-8.2)
[2018-03-27 10:49] VITALS: PULSE 80
--- NOTE | 2018-03-27 12:20 | P.PN ---
Subjective Progress Note Date: 03/27/18 Principal diagnosis: Acute bronchitis with reactive bronchospasm and bronchial inflammation. Pulmonary consult dated 03/25/2018 62-year-old female who presents to the emergency department with complaints of cough congestion shortness of breath. She apparently was recently in [place]. She apparently got sick there. It started off as an upper respiratory tract infection and this settled into her chest. She had chest congestion coughing wheezing and shortness of breath. She does have a history of DVT and previous pulmonary embolism. She is on lifelong blood thinner. She is feeling better today. She denies any chest pain or chest discomfort. There was no fever or chills. No nausea vomiting or diarrhea. She does not have a history of underlying intrinsic pulmonary disease. She was last seen by me in July 2017. Pulmonary function testing was normal. She is feeling better today and probably could be discharged home later today or tomorrow. Her likely diagnosis is acute bronchitis with reactive bronchospasm and bronchial inflammation. Her chest x-ray did not show an acute process. In addition, she did have a Doppler of the right lower extremity which was negative. She does have a history of angina, hyperlipidemia, pneumonia, pulmonary embolism, hypothyroidism, hyperlipidemia, and a DVT. On 03/26/2018 patient seen in follow-up medical surgical floor. Doing much better today, no shortness of breath, coughing less. Lung sounds are positive for a few residual wheezes, but overall patient is clinically improved. Afebrile, vital signs are stable. He has been treated with IV steroids, nebulized bronchodilators, and antibiotics, and has responded well to treatments. Requesting to go home today. On 03/19/2018 patient seen again in follow-up on medical surgical floor. Continues to improve. On sounds are positive for a few scattered end expiratory wheezes, overall feeling and breathing easier. On room air, pulse ox is 95%, she is afebrile. Blood cultures are negative. No acute issues overnight. From pulmonary perspective patient is stable for discharge home today. Today's labs have been reviewed, are essentially unremarkable. Objective - Vital Signs Vital signs: Vital Signs Temp 97.8 F 03/27/18 06:37 Pulse 80 03/27/18 10:57 Resp 16 03/27/18 06:37 BP 115/55 03/27/18 06:37 Pulse Ox 95 03/27/18 06:37 Intake & Output 03/26/18 03/27/18 03/27/18 18:59 06:59 18:59 Other: # Voids 3 1 - Exam GENERAL EXAM: Alert, pleasant, 62-year-old white female comfortable in no apparent distress. HEAD: Normocephalic/atraumatic. EYES: Normal reaction of pupils, equal size. Conjunctiva pink, sclera white. NOSE: Clear with pink turbinates. THROAT: No erythema or exudates. NECK: No masses, no JVD, no thyroid enlargement, no adenopathy. CHEST: No chest wall deformity. Symmetrical expansion. LUNGS: Equal air entry with no crackles, wheeze, rhonchi or dullness. CVS: Regular rate and rhythm, normal S1 and S2, no gallops, no murmurs, no rubs ABDOMEN: Soft, nontender. No hepatosplenomegaly, normal bowel sounds, no guarding or rigidity. EXTREMITIES: No clubbing, no edema, no cyanosis, 2+ pulses and upper and lower extremities. MUSCULOSKELETAL: Muscle strength and tone normal. SPINE: No scoliosis or deformity SKIN: No rashes CENTRAL NERVOUS SYSTEM: Alert and oriented -3. No focal deficits, tone is normal in all 4 extremities. PSYCHIATRIC: Alert and oriented -3. Appropriate affect. Intact judgment and insight. - Labs CBC & Chem 7: 03/27/18 08:54 03/27/18 08:54 Labs: Abnormal Lab Results - Last 24 Hours (Table) 03/26/18 03/26/18 03/27/18 Range/Units 17:10 20:47 07:25 Neutrophils # (1.3-7.7) k/uL Lymphocytes # (1.0-4.8) k/uL BUN (7-17) mg/dL Glucose (74-99) mg/dL POC Glucose (mg/dL) 170 H 176 H 144 H (75-99) mg/dL Total Protein (6.3-8.2) g/dL 03/27/18 03/27/18 Range/Units 08:54 08:54 Neutrophils # 8.5 H (1.3-7.7) k/uL Lymphocytes # 0.5 L (1.0-4.8) k/uL BUN 23 H (7-17) mg/dL Glucose 221 H (74-99) mg/dL POC Glucose (mg/dL) (75-99) mg/dL Total Protein 6.2 L (6.3-8.2) g/dL Microbiology - Last 24 Hours (Table) 03/24/18 07:50 Blood Culture - Preliminary Blood No Growth after 72 hours Assessment and Plan Plan: Acute bronchitis with reactive bronchospasm and bronchial inflammation Recent acute upper respiratory tract infection History of DVT and pulmonary embolism, currently on lifelong anticoagulation History of hyperlipidemia History of pneumonia History of hypothyroidism Obesity No history of intrinsic pulmonary disease Plan: Stable, improving. Vital signs are stable, on room air, ambulating. From pulmonary perspective patient is stable for discharge home today on outpatient course of antibiotics, prednisone taper, and nebulized bronchodilators. Follow- up with Dr. Mayen in the office in one week I performed a history & physical examination of the patient and discussed their management with my nurse practitioner, Bijal Alvares. I reviewed the nurse practitioner's note and agree with the documented findings and plan of care. Lung sounds are positive for a few wheezes. The findings and the impression was discussed with the patient. I attest to the documentation by the nurse practitioner. Time with Patient: Less than 30
[2018-03-27 12:46] LABS: Glucose,Whole Blood 141 mg/dL (75-99)
--- NOTE | 2018-03-27 12:47 | P.DS ---
Providers Date of admission: 03/24/18 11:15 Expected date of discharge: 03/27/18 Attending physician: Angel Luis Bellamy Consults: 03/24/18 13:48 Consult Physician Urgent Consulting Provider: Jose Mayen Consult Reason/Comments: SOB, Wheezing, COPD Do you want consulting provider notified?: Yes Primary care physician: Mariaa Duncan Hospital Course: Discharge diagnosis 1. Shortness of breath with cough and congestion. Secondary to COPD exacerbation and bronchitis. D-dimer negative 2. Acute COPD exacerbation: Continue prednisone taper 3. Acute tracheobronchitis: No pneumonia on chest x-ray. Continue Levaquin for 5 more days per pulmonary service 4. History of PE and DVT diagnosed in 2016. Continue Xarelto. Doppler of right leg and this admission negative for DVT 5. Hyperlipidemia 6. Mildly elevated LFTs: Resolved. We'll restart statin 7. Hypothyroidism continue Synthroid 8. Oral candidiasis start nystatin swish and swallow continue for another 3 days Hospital course This is a 62-year-old female, patient of Dr. Duncan. She has a known past medical history of left leg DVT and PE diagnosed in 2016 and she is anticoagulated with Xarelto. She also has a history of hypothyroidism, COPD and hyperlipidemia. She is a former smoker. Patient reports that she has been having a cough with congestion and shortness of breath for almost a week. She left denies states to travel to [place] on the . And while she was there developed congestion with runny nose also having sweats. She's having a cough that keeps her up at night. The cough is nonproductive. And also worsening shortness of breath. She presented to the emergency room for further evaluation and treatment. Chest x-rays negative for any acute pulmonary process. She started on IV Solu-Medrol and nebulizer treatments. Patient reports that she did take a DuoNeb treatment at home with not much improvement. Patient was concerned about blood clots. She has not missed any doses of her Xarelto. She did complain of right leg tightness in the ER. Doppler was completed and is negative for DVT. She has been having issues with swelling in both legs and was started on Lasix by her family doctor. Denies any history of congestive heart failure. She ws admitted to the hospital for an acute COPD exacerbation and bronchitis. Will place her on Levaquin. She has an ALLERGY to penicillin. Pulmonary service has been consulted. Patient denies any fever or chills. Denies a nausea vomiting. Denies any chest pain. On 03/25/2018 patient states she is feeling slightly improved. Patient remains on IV Solu-Medrol and Levaquin IV antibiotic. Patient denies chest pain. Patient states shortness of breath is improving. Patient is having productive cough. Patient denies nausea vomiting or diarrhea. Patient denies any urinary burning or frequency. 03/26/2018 patient still reporting shortness of breath and cough. She is feeling better since admission. She does not feel quite ready for discharge yet. Discussed with nursing staff will try to wean patient off of oxygen have her up and ambulating. Patient denies any chest pain, nausea vomiting, bowel movement changes or urinary symptoms. 03/27/2018 patient is medically stable for discharge. She's been cleared by pulmonary service for discharge as well. She was treated for COPD exacerbation and bronchitis. Which improved with IV Levaquin and IV Solu-Medrol and nebulizer treatments. Patient was able to be weaned off the oxygen. She's been up and ambulating. Cough and shortness of breath are showing improvement. Pulmonary service has written prescriptions for prednisone taper and Levaquin for 5 more days. Also continue nebulizer treatments. Patient's symptoms have improved she is medically stable for discharge. Please refer to chart for any further details. I performed an examination of the patient and discussed their management with the physician Grain Elevator Man. I have reviewed the Physician Grain Elevator Man's notes and agree with the documented findings and plan of care Patient Condition at Discharge: Stable Plan - Discharge Summary New Discharge Prescriptions: New Ipratropium-Albuterol Nebulize [Duoneb 0.5 mg-3 mg/3 ml Soln] 3 ml INHALATION QID 30 Days #5 box predniSONE 10 mg PO DAILY 12 Days #24 tab Levofloxacin [Levaquin] 500 mg PO DAILY 5 Days #5 tab guaiFENesin [Mucinex] 1,200 mg PO Q12HR #10 tablet.er guaiFENesin-Coden 100-10MG/5ML [Robitussin AC] 10 ml PO BID #100 ml Nystatin 100,000 Unit/ml Susp [Mycostatin Oral Susp] 500,000 unit PO QID #12 cup Continue Levothyroxine Sodium [Synthroid] 150 mcg PO DAILY Furosemide [Lasix] 20 mg PO DAILY Metoprolol Tartrate 25 mg PO DAILY Atorvastatin [Lipitor] 40 mg PO HS Rivaroxaban [Xarelto] 20 mg PO DAILY Cholecalciferol [Vitamin D3] 3,000 unit PO DAILY Discharge Medication List Levothyroxine Sodium [Synthroid] 150 mcg PO DAILY 08/09/16 [History] Atorvastatin [Lipitor] 40 mg PO HS 06/07/17 [History] Furosemide [Lasix] 20 mg PO DAILY 06/07/17 [History] Metoprolol Tartrate 25 mg PO DAILY 06/07/17 [History] Cholecalciferol [Vitamin D3] 3,000 unit PO DAILY 01/12/18 [History] Rivaroxaban [Xarelto] 20 mg PO DAILY 01/12/18 [History] Ipratropium-Albuterol Nebulize [Duoneb 0.5 mg-3 mg/3 ml Soln] 3 ml INHALATION QID 30 Days #5 box 03/26/18 [Rx] Levofloxacin [Levaquin] 500 mg PO DAILY 5 Days #5 tab 03/26/18 [Rx] predniSONE 10 mg PO DAILY 12 Days #24 tab 03/26/18 [Rx] Nystatin 100,000 Unit/ml Susp [Mycostatin Oral Susp] 500,000 unit PO QID #12 cup 03/27/18 [Rx] guaiFENesin [Mucinex] 1,200 mg PO Q12HR #10 tablet.er 03/27/18 [Rx] guaiFENesin-Coden 100-10MG/5ML [Robitussin AC] 10 ml PO BID #100 ml 03/27/18 [Rx ] Follow up Appointment(s)/Referral(s): Mariaa Duncan MD [Primary Care Provider] - 1 Week Jose Mayen DO [Doctor of Osteopathic Medicine] - 1 Week Patient Instructions/Handouts: COPD (Chronic Obstructive Pulmonary Disease) (DC ) Activity/Diet/Wound Care/Special Instructions: Cardiac diet. Activity as tolerated. Discharge Disposition: HOME SELF-CARE
[2018-03-27] MEDS: LEVOFLOXACIN 500 MG TAB PO SCH (13:14)
== END 2018-03-27 14:31 | disposition home or self-care (01) ==
LOC: EC 07:15 → 4MS4W 11:15
PROVIDERS: ADMIT Internal Medicine; ATTEND Internal Medicine
DX: J44.1 Chronic obstructive pulmonary disease with (acute) exacerbation (principal); J44.0 Chronic obstructive pulmonary disease with (acute) lower respiratory infection; J20.9 Acute bronchitis, unspecified; I20.9 Angina pectoris, unspecified; E78.5 Hyperlipidemia, unspecified; E03.9 Hypothyroidism, unspecified; R79.89 Other specified abnormal findings of blood chemistry; B37.0 Candidal stomatitis; E66.9 Obesity, unspecified; Z68.41 Body mass index [BMI] 40.0-44.9, adult; Z79.01 Long term (current) use of anticoagulants; Z79.890 Hormone replacement therapy; Z79.899 Other long term (current) drug therapy; Z88.0 Allergy status to penicillin; Z90.49 Acquired absence of other specified parts of digestive tract; Z87.891 Personal history of nicotine dependence; Z86.718 Personal history of other venous thrombosis and embolism; Z87.01 Personal history of pneumonia (recurrent); Z96.653 Presence of artificial knee joint, bilateral; Z87.09 Personal history of other diseases of the respiratory system; Z86.711 Personal history of pulmonary embolism; Z82.49 Family history of ischemic heart disease and other diseases of the circulatory system; Z82.0 Family history of epilepsy and other diseases of the nervous system
CPT/HCPCS: 96376 ×4; 96374; 96375; 99285; 36415; 94640 ×8; 94760; 97161; 85379; 80053 ×4; 83605; 85025 ×4; 85610; 85730; 87040; 83036; 71046; 93971; G0378 ×4; J2930 ×4; J1956

== ENCOUNTER → 2019-03-12 | Outpatient (CLI) | payer OTHER ==
--- NOTE | 2019-03-15 13:26 | MM ---
Reason for exam: screening (asymptomatic). Last mammogram was performed 1 year and 1 month ago. History: Patient is postmenopausal. Physical Findings: A clinical breast exam by your physician is recommended on an annual basis and results should be correlated with mammographic findings. MG Screening Mammo w CAD Bilateral CC and MLO view(s) were taken. Prior study comparison: February 16, 2018, bilateral MG screening mammo w CAD. December 23, 2016, bilateral MG screening mammo w CAD. There are scattered fibroglandular densities. There is chronic nodularity in the right breast. No significant changes when compared with prior studies. ASSESSMENT: Benign, BI-RAD 2 RECOMMENDATION: Routine screening mammogram of both breasts in 1 year.
== END | disposition home or self-care (01) ==
LOC: RADMAMWWP 13:31
PROVIDERS: ATTEND Family Medicine
DX: Z12.31 Encounter for screening mammogram for malignant neoplasm of breast (principal)
CPT/HCPCS: 77067

== ENCOUNTER → 2019-08-26 | Outpatient (CLI) | payer MEDICARE, BC ==
--- NOTE | 2019-08-26 12:45 | MR ---
EXAMINATION TYPE: MR angio head wo con DATE OF EXAM: 08/26/2019 COMPARISON: MRI brain same date HISTORY: Arteriovenous malformation CONTRAST: None TECHNIQUE: Multiplanar multiecho imaging on a 3.0 Mahi magnet is performed through the [place]. 3-D [id number] imaging is performed. Source images are reviewed on the computer in the axi al plane. Reconstructed images rotating on the computer are reviewed. FINDINGS: The internal carotid arteries bifurcate normally into A1 and M1 segments. The A2 segments are normal. Middle cerebral artery branches are normal. Ophthalmic arteries appear normal. Anterior communicating artery is patent. Small azygos vessel may arise from the communicating artery . The right posterior communicating artery is patent. The left posterior communicating artery is patent. Vertebrobasilar arteries within the [id number] are normal. Posterior cerebral vasculature is norm al. No suspicious aneurysm or aneurysmal dilatation is evident. No obstructions are identified. No significant flow-limiting stenosis is evident. IMPRESSIONS: 1. NORMAL MRA [place]. 2. No suspicious changes to suggest arteriovenous malformation.
--- NOTE | 2019-08-26 13:33 | MR ---
EXAMINATION TYPE: MR brain wo/w con DATE OF EXAM: 08/26/2019 COMPARISON: None HISTORY: Arterial venous malformation CONTRAST: Performed utilizing 13 mL intravenous Gadavist gadolinium contrast. TECHNIQUE: Multiplanar, multiecho imaging on a 3.0 Mahi magnet is performed through the brain. Stud y is performed within 24 hours of arrival to the hospital. The craniovertebral junction is normal. The pituitary is normal. Diffusion-weighted imaging is performed. No abnormal hyperintensity is present to suggest an acute i ntracranial infarct or acute ischemic change. There are scattered tiny punctate areas of hyperintensity on T2 and Inversion Recovery weighted seque nces which are non-specific but can be related to microvascular ischemic changes. Ventricles and sulci are appropriate for the patient age. No areas of abnormal enhancement is evident. No tangle of vessels to suggest arterial venous malforma tion is evident. IMPRESSIONS: 1. No dural venous malformations evident. 2. Minimal white matter ischemic type changes without significant atrophy.
== END | disposition home or self-care (01) ==
LOC: RADMRIMAIN 10:46
PROVIDERS: ATTEND Nurse Practitioner
DX: Q28.2 Arteriovenous malformation of cerebral vessels (principal)
CPT/HCPCS: 70544; 70553; A9585